=== PATIENT | male | born 1955 | race Caucasian/White ===

== ENCOUNTER 2019-05-30 18:35 | Emergency (ER) | payer MEDICAID ==
[~2019-05-30] VITALS: Ht 165.1 cm; Wt 77.0 kg
[2019-05-30] MEDS ORDERED: TETRACAINE 0.5% OPHTH DROPS 4ML RIGHTEYE ONE (21:00)
[2019-05-30 21:46] LABS: BASOPHILS % 0.5 % (0.0-2.0); EOSINOPHILS % 1.8 % (0.0-5.0); HEMATOCRIT. 36.1 % (42.0-52.0); HEMOGLOBIN. 12.5 g/dL (14.0-18.0); LYMPHOCYTES % 25.9 % (20.0-50.0); MEAN CORPUSCULAR HEMOGLOBIN 30.7 pg (28.0-32.0); MEAN CORPUSCULAR VOLUME 88.8 fL (80.0-94.0); MEAN PLATELET VOLUME 7.8 fl (7.4-10.4); MONOCYTES % 11.3 % (2.0-8.0); NEUTROPHILS % 60.5 % (40.0-76.0); PLATELET 92 x1000/uL (130-400); RED BLOOD CELL COUNT 4.07 mill/uL (4.7-6.1); RED CELL DISTRIBUTION WIDTH 13.3 % (11.6-14.6)
[2019-05-30 21:52] LABS: CHLORIDE 104 mEq/L (98-107)
[2019-05-31 00:58] VITALS: BP 141/77
== END 2019-05-31 01:03 | disposition home or self-care (01) ==
LOC: ER 18:37
DX: H53.8 Other visual disturbances (principal); R51 Headache; E11.9 Type 2 diabetes mellitus without complications; Z87.448 Personal history of other diseases of urinary system; Z87.19 Personal history of other diseases of the digestive system
CPT/HCPCS: 36415; 70450; 80053; 82962; 84484; 85025; 85651; 93005; 99284; Z7610

== ENCOUNTER 2022-05-25 08:36 | Inpatient (IN) | payer MEDICAID, OTHER ==
[~2022-05-25] VITALS: Ht 167.6 cm; Wt 73.5 kg
[2022-05-25] MEDS ORDERED: LIDOCAINE HCL 1% 20ML VIAL (Pyxis) INJ INFIL STA (09:13)
[2022-05-25 09:42] LABS: BASOPHILS % 0.4 % (0.0-2.0); EOSINOPHILS % 0.4 % (0.0-5.0); HEMOGLOBIN. 9.2 g/dL (14.0-18.0); LYMPHOCYTES % 18.4 % (20.0-50.0); MEAN CORPUSCULAR HEMOGLOBIN 29.9 pg (28.0-32.0); MEAN CORPUSCULAR VOLUME 90.7 fL (80.0-94.0); MEAN PLATELET VOLUME 8.5 fl (7.4-10.4); NEUTROPHILS % 70.8 % (40.0-76.0); RED BLOOD CELL COUNT 3.08 mill/uL (4.7-6.1)
[2022-05-25 09:53] LABS: CHLORIDE 104 mEq/L (98-107)
[2022-05-25 09:57] LABS: INR 1.2; PARTIAL THROMBOPLASTIN TIME 26.3 sec (23.4-31.0); PROTHROMBIN TIME 12.4 sec (9.6-11.0)
[2022-05-25 09:59] LABS: PLATELET 49 x1000/uL (130-400)
[2022-05-25] MEDS ORDERED: LACTULOSE ENEMA 1,000ML BOTTLE PR STA (10:07)
[2022-05-25 10:09] LABS: ETHANOL BLOOD < 10 mg/dL
[2022-05-25] MEDS ORDERED: CEFTRIAXONE 1 G PREMIX 50 ML IV ONE (10:15)
[2022-05-25] MEDS ORDERED: VANCOMYCIN 1G PREMIX 200 ML IV NR ×2 (15:30→22:00)
[2022-05-25] MEDS ORDERED: ONDANSETRON HCL 4MG/2ML INJ IV PRN (15:30)
[2022-05-25] MEDS ORDERED: IPRATROPIUM/ALBUTEROL 0.5-3(2.5)MG/3ML NEB HHN PRN (15:30)
[2022-05-25] MEDS ORDERED: PIPERACILLIN/TAZ 3.375G PREMIX 50 ML IV SCH (16:00)
[2022-05-25 16:30] VITALS: BP 105/64
[2022-05-25 16:36] LABS: BG BASE EXCESS -7.3 mmol/L (-2.0-2.0); BG CARBOXYHEMOGLOBIN 0.3 % (0.5-1.5); BG DEOXYHEMOGLOBIN 3.1 % (0.0-5.0); BG FRACTION INSPIRED OXYGEN 21; BG HCO3 ACT 15.3 mmol/L (22.0-26.0); BG METHEMOGLOBIN 0.3 % (0.0-1.5); BG OXYGEN SATURATION 96.9 % (92.0-98.5); BG OXYHEMOGLOBIN 96.3 % (94.0-97.0); BG PCO2 22.3 mmHg (35.0-45.0); BG PH 7.453 (7.350-7.450); BG PO2 87.6 mmHg (75.0-100.0); BG SAMPLE SITE RIGHT BRACHIAL; BG TOTAL HEMOGLOBIN 9.3 g/dL (12.0-18.0); BG VENT MODE ROOM AIR
[2022-05-25] MEDS ORDERED: LORAZEPAM 2MG/ML CPJ IV PRN (17:45)
[2022-05-25] MEDS ORDERED: REN800 MT (17:50)
[2022-05-25] MEDS ORDERED: CHLO10TA19 MT (17:50)
[2022-05-25] MEDS ORDERED: TEMA30CA MT (17:50)
[2022-05-25] MEDS ORDERED: TAMS-11 MT (17:50)
[2022-05-25] MEDS ORDERED: PROT40 MT (17:50)
[2022-05-25] MEDS ORDERED: FERR325T6 MT (17:50)
[2022-05-25] MEDS ORDERED: FOLI-43 MT (17:50)
[2022-05-25] MEDS ORDERED: LACT10SO3 MT (17:50)
[2022-05-25] MEDS ORDERED: THIA100T72 MT (17:50)
[2022-05-25 17:51] VITALS: BP 105/64
[2022-05-25] MEDS: PANTOPRAZOLE SODIUM 40 MG/VIAL IV SCH (18:07)
[2022-05-25] MEDS: LACTULOSE 20G/30ML UDC PO SCH ×2 (18:07→20:31)
[2022-05-25] MEDS: THIAMINE HCL 100MG TABLET PO SCH (18:08)
[2022-05-25 20:00] VITALS: BP 105/68
[2022-05-25] MEDS: ALBUMIN HUMAN 12.5GM/50ML (25%) IV SCH (20:22)
[2022-05-25] MEDS: RIFAXIMIN 550 MG TABLET PO SCH (20:22)
[2022-05-25] MEDS: CHLORDIAZEPOXIDE 5 MG CAPSULE PO SCH (21:26)
[2022-05-26] VITALS (9 sets, daily range): BP systolic 96–120; BP diastolic 55–80
[2022-05-26] MEDS: LACTULOSE 20G/30ML UDC PO SCH ×6 (01:18→20:43)
[2022-05-26 03:35] LABS: BASOPHILS % 0.1 % (0.0-2.0); EOSINOPHILS % 0.4 % (0.0-5.0); HEMATOCRIT. 26.1 % (42.0-52.0); HEMOGLOBIN. 8.8 g/dL (14.0-18.0); LYMPHOCYTES % 11.7 % (20.0-50.0); MEAN CORPUSCULAR HEMOGLOBIN 30.3 pg (28.0-32.0); MEAN CORPUSCULAR VOLUME 90.1 fL (80.0-94.0); MEAN PLATELET VOLUME 7.6 fl (7.4-10.4); MONOCYTES % 9.8 % (2.0-8.0); RED CELL DISTRIBUTION WIDTH 16.9 % (11.6-14.6)
[2022-05-26 03:43] LABS: INR 1.2; PROTHROMBIN TIME 12.8 sec (9.6-11.0)
[2022-05-26 04:52] LABS: FERRITIN 134 ng/mL (22-322)
[2022-05-26 05:17] LABS: VITAMIN B12 SERUM > 2000.0 pg/mL (211-911)
[2022-05-26 05:58] LABS: HEPATITIS B SURFACE ANTIGEN NEGATIVE
[2022-05-26] MEDS: CHLORDIAZEPOXIDE 5 MG CAPSULE PO SCH ×3 (06:13→21:04)
[2022-05-26 06:23] LABS: PLATELET 49 x1000/uL (130-400)
[2022-05-26] MEDS: RIFAXIMIN 550 MG TABLET PO SCH ×2 (08:32→20:43)
[2022-05-26] MEDS: THIAMINE HCL 100MG TABLET PO SCH (08:32)
[2022-05-26] MEDS: FOLIC ACID 1MG TABLET PO SCH (08:32)
[2022-05-26] MEDS: ALBUMIN HUMAN 12.5GM/50ML (25%) IV SCH ×2 (08:32→17:47)
[2022-05-26] MEDS: PANTOPRAZOLE SODIUM 40 MG/VIAL IV SCH (08:32)
[2022-05-26] MEDS: MULTIVITAMINS,THER W-MINERALS TABLET PO SCH (08:33)
[2022-05-26] MEDS: CEFTRIAXONE 1,000 MG in DEXTROSE 5% WATER 50 ML IV SCH (08:35)
[2022-05-26] MEDS ORDERED: PIPERACILLIN/TAZOBACTAM 3.375 G in DEXTROSE 5% WATER 50 ML IV SCH (09:00)
[2022-05-26] MEDS ORDERED: CEFTRIAXONE 1 G PREMIX 50 ML IV SCH (10:00)
[2022-05-26 16:56] LABS: CLARITY URINE CLOUDY (CLEAR); COLOR URINE YELLOW (YELLOW); KETONES URINE NEGATIVE (NEGATIVE); LEUKOCYTE ESTERASE URINE 2+ (NEGATIVE); NITRITE URINE NEGATIVE (NEGATIVE); OCCULT BLOOD URINE 3+ (NEGATIVE); PROTEIN URINE 2+ (NEGATIVE); SPECIFIC GRAVITY URINE 1.016 (1.005-1.030); UROBILINOGEN URINE 0.2 E.U./dL (0.2-1.0)
[2022-05-27] VITALS (11 sets, daily range): BP systolic 94–136; BP diastolic 54–68
[2022-05-27] MEDS: CHLORDIAZEPOXIDE 5 MG CAPSULE PO SCH ×3 (06:13→21:05)
[2022-05-27 08:17] LABS: BASOPHILS % 0.4 % (0.0-2.0); EOSINOPHILS % 0.6 % (0.0-5.0); HEMATOCRIT. 22.7 % (42.0-52.0); HEMOGLOBIN. 7.7 g/dL (14.0-18.0); LYMPHOCYTES % 16.3 % (20.0-50.0); MEAN CORPUSCULAR HEMOGLOBIN 30.5 pg (28.0-32.0); MEAN CORPUSCULAR VOLUME 90.3 fL (80.0-94.0); MEAN PLATELET VOLUME 7.6 fl (7.4-10.4); MONOCYTES % 10.9 % (2.0-8.0); NEUTROPHILS % 71.8 % (40.0-76.0); RED BLOOD CELL COUNT 2.51 mill/uL (4.7-6.1); RED CELL DISTRIBUTION WIDTH 16.8 % (11.6-14.6)
[2022-05-27 08:26] LABS: PLATELET 41 x1000/uL (130-400)
[2022-05-27] MEDS: CEFTRIAXONE 1,000 MG in DEXTROSE 5% WATER 50 ML IV SCH (08:30)
[2022-05-27] MEDS: THIAMINE HCL 100MG TABLET PO SCH (08:31)
[2022-05-27] MEDS: MULTIVITAMINS,THER W-MINERALS TABLET PO SCH (08:31)
[2022-05-27] MEDS: RIFAXIMIN 550 MG TABLET PO SCH ×2 (08:31→21:06)
[2022-05-27] MEDS: FOLIC ACID 1MG TABLET PO SCH (08:32)
[2022-05-27] MEDS: LACTULOSE 20G/30ML UDC PO SCH ×4 (08:32→21:05)
[2022-05-27] MEDS: PANTOPRAZOLE SODIUM 40 MG/VIAL IV SCH (08:38)
[2022-05-27] MEDS: ALBUMIN HUMAN 12.5GM/50ML (25%) IV SCH (12:08)
[2022-05-27] MEDS ORDERED: LIDOCAINE HCL 1% 30ML VIAL (10MG/ML) ONE (13:01)
[2022-05-27] MEDS ORDERED: SODIUM BICARBONATE 4% (2.4MEQ) 5ML VIAL IV ONE (13:02)
[2022-05-27] MEDS ORDERED: VANCOMYCIN 1G PREMIX 200 ML IV SCH (16:00)
[2022-05-28] VITALS: BP 96/49
[2022-05-28 00:34] LABS: HEMATOCRIT 30.7 % (42.0-52.0); HEMOGLOBIN 10.3 g/dL (14.0-18.0)
[2022-05-28 04:00] VITALS: BP 107/58
[2022-05-28] MEDS: CHLORDIAZEPOXIDE 5 MG CAPSULE PO SCH ×3 (05:45→22:11)
[2022-05-28 07:12] LABS: BASOPHILS % 0.6 % (0.0-2.0); EOSINOPHILS % 1.7 % (0.0-5.0); HEMATOCRIT. 29.4 % (42.0-52.0); HEMOGLOBIN. 9.7 g/dL (14.0-18.0); LYMPHOCYTES % 16.5 % (20.0-50.0); MEAN CORPUSCULAR VOLUME 91.2 fL (80.0-94.0); MEAN PLATELET VOLUME 7.6 fl (7.4-10.4); MONOCYTES % 12.2 % (2.0-8.0); RED BLOOD CELL COUNT 3.22 mill/uL (4.7-6.1); RED CELL DISTRIBUTION WIDTH 16.7 % (11.6-14.6)
[2022-05-28 08:00] VITALS: BP 130/77
[2022-05-28 08:29] LABS: PLATELET 49 x1000/uL (130-400)
[2022-05-28] MEDS: MULTIVITAMINS,THER W-MINERALS TABLET PO SCH (08:53)
[2022-05-28] MEDS: PANTOPRAZOLE SODIUM 40 MG/VIAL IV SCH (08:53)
[2022-05-28] MEDS: THIAMINE HCL 100MG TABLET PO SCH (08:53)
[2022-05-28] MEDS: FOLIC ACID 1MG TABLET PO SCH (08:53)
[2022-05-28] MEDS: RIFAXIMIN 550 MG TABLET PO SCH ×2 (08:53→21:18)
[2022-05-28] MEDS: CEFTRIAXONE 1,000 MG in DEXTROSE 5% WATER 50 ML IV SCH (08:58)
[2022-05-28] MEDS: LACTULOSE 20G/30ML UDC PO SCH ×4 (08:58→14:30)
[2022-05-28 12:00] VITALS: BP 155/88
[2022-05-28 16:00] VITALS: BP 124/82
[2022-05-28] MEDS: FERROUS SULFATE 325MG TABLET PO SCH (17:29)
[2022-05-28] MEDS: ASCORBIC ACID 500 MG TABLET PO SCH (17:29)
[2022-05-28] MEDS ORDERED: POTASSIUM CHLORIDE 20MEQ TABLET SR PO NR (19:45)
[2022-05-28 20:00] VITALS: BP 123/52
[2022-05-28] MEDS: CARVEDILOL 3.125 MG TABLET PO SCH (21:20)
[2022-05-29] VITALS: BP 107/42
[2022-05-29 04:00] VITALS: BP 115/45
[2022-05-29] MEDS: CHLORDIAZEPOXIDE 5 MG CAPSULE PO SCH ×3 (05:25→20:46)
[2022-05-29 08:00] VITALS: BP 138/79
[2022-05-29 08:29] LABS: BASOPHILS % 0.5 % (0.0-2.0); EOSINOPHILS % 3.6 % (0.0-5.0); HEMATOCRIT. 26.4 % (42.0-52.0); HEMOGLOBIN. 8.8 g/dL (14.0-18.0); LYMPHOCYTES % 23.1 % (20.0-50.0); MEAN CORPUSCULAR HEMOGLOBIN 30.2 pg (28.0-32.0); MEAN CORPUSCULAR VOLUME 90.1 fL (80.0-94.0); MEAN PLATELET VOLUME 7.9 fl (7.4-10.4); MONOCYTES % 13.2 % (2.0-8.0); NEUTROPHILS % 59.6 % (40.0-76.0); RED BLOOD CELL COUNT 2.92 mill/uL (4.7-6.1); RED CELL DISTRIBUTION WIDTH 15.8 % (11.6-14.6)
[2022-05-29] MEDS: CEFTRIAXONE 1,000 MG in DEXTROSE 5% WATER 50 ML IV SCH (09:16)
[2022-05-29] MEDS: LACTULOSE 20G/30ML UDC PO SCH (09:18)
[2022-05-29] MEDS: THIAMINE HCL 100MG TABLET PO SCH (09:18)
[2022-05-29] MEDS: ASCORBIC ACID 500 MG TABLET PO SCH ×2 (09:18→18:45)
[2022-05-29] MEDS: PANTOPRAZOLE SODIUM 40 MG/VIAL IV SCH (09:18)
[2022-05-29] MEDS: FERROUS SULFATE 325MG TABLET PO SCH ×2 (09:19→18:45)
[2022-05-29] MEDS: FOLIC ACID 1MG TABLET PO SCH (09:27)
[2022-05-29] MEDS: MULTIVITAMINS,THER W-MINERALS TABLET PO SCH (09:27)
[2022-05-29] MEDS: CARVEDILOL 3.125 MG TABLET PO SCH ×2 (09:27→20:46)
[2022-05-29] MEDS: RIFAXIMIN 550 MG TABLET PO SCH ×2 (09:27→20:46)
[2022-05-29 12:00] VITALS: BP 95/54
[2022-05-29 14:43] LABS: PLATELET 38 x1000/uL (130-400); PLATELET ESTIMATE MARKEDLY DECREASED
[2022-05-29 16:00] VITALS: BP 128/79
[2022-05-29 20:00] VITALS: BP 93/53
[2022-05-30 00:05] VITALS: BP 92/58
[2022-05-30 04:00] VITALS: BP 93/52
[2022-05-30] MEDS: CHLORDIAZEPOXIDE 5 MG CAPSULE PO SCH ×4 (05:37→21:25)
[2022-05-30 08:00] VITALS: BP 87/51
[2022-05-30] MEDS: CARVEDILOL 3.125 MG TABLET PO SCH ×2 (09:00→21:00)
[2022-05-30] MEDS: LACTULOSE 20G/30ML UDC PO SCH (09:13)
[2022-05-30] MEDS: FOLIC ACID 1MG TABLET PO SCH (09:14)
[2022-05-30] MEDS: THIAMINE HCL 100MG TABLET PO SCH (09:14)
[2022-05-30] MEDS: RIFAXIMIN 550 MG TABLET PO SCH ×2 (09:14→21:25)
[2022-05-30] MEDS: ASCORBIC ACID 500 MG TABLET PO SCH ×2 (09:14→17:26)
[2022-05-30] MEDS: MULTIVITAMINS,THER W-MINERALS TABLET PO SCH (09:14)
[2022-05-30] MEDS: FERROUS SULFATE 325MG TABLET PO SCH ×2 (09:14→17:26)
[2022-05-30] MEDS: PANTOPRAZOLE SODIUM 40 MG/VIAL IV SCH (09:14)
[2022-05-30] MEDS: CEFTRIAXONE 1,000 MG in DEXTROSE 5% WATER 50 ML IV SCH (09:16)
[2022-05-30 12:00] VITALS: BP 98/57
[2022-05-30 12:52] LABS: BASOPHILS % 0.6 % (0.0-2.0); EOSINOPHILS % 3.5 % (0.0-5.0); HEMATOCRIT. 26.1 % (42.0-52.0); LYMPHOCYTES % 27.1 % (20.0-50.0); MEAN CORPUSCULAR HEMOGLOBIN 30.4 pg (28.0-32.0); MEAN CORPUSCULAR VOLUME 88.4 fL (80.0-94.0); MEAN PLATELET VOLUME 7.5 fl (7.4-10.4); MONOCYTES % 13.7 % (2.0-8.0); NEUTROPHILS % 55.1 % (40.0-76.0); RED BLOOD CELL COUNT 2.95 mill/uL (4.7-6.1); RED CELL DISTRIBUTION WIDTH 16.3 % (11.6-14.6)
[2022-05-30] MEDS ORDERED: RIFA550T MT (13:57)
[2022-05-30 16:00] VITALS: BP 84/55
[2022-05-30] MEDS: MIDODRINE HCL 5MG TABLET PO SCH (17:27)
[2022-05-30] MEDS ORDERED: ALBUMIN HUMAN 12.5GM/50ML (25%) IV NR (18:00)
[2022-05-30 20:00] VITALS: BP 100/54
[2022-05-31] VITALS: BP 90/53
[2022-05-31 04:00] VITALS: BP 94/50
[2022-05-31 07:47] LABS: BASOPHILS % 0.7 % (0.0-2.0); EOSINOPHILS % 2.9 % (0.0-5.0); HEMATOCRIT. 24.4 % (42.0-52.0); HEMOGLOBIN. 8.3 g/dL (14.0-18.0); LYMPHOCYTES % 35.3 % (20.0-50.0); MEAN CORPUSCULAR HEMOGLOBIN 30.3 pg (28.0-32.0); MEAN CORPUSCULAR VOLUME 89.4 fL (80.0-94.0); MEAN PLATELET VOLUME 7.5 fl (7.4-10.4); MONOCYTES % 12.7 % (2.0-8.0); NEUTROPHILS % 48.4 % (40.0-76.0); RED BLOOD CELL COUNT 2.73 mill/uL (4.7-6.1)
[2022-05-31 08:00] VITALS: BP 91/55
[2022-05-31 08:21] LABS: PLATELET 32 x1000/uL (130-400)
[2022-05-31] MEDS ORDERED: POTASSIUM CHLORIDE 20MEQ TABLET SR PO NR (08:30)
[2022-05-31] MEDS: CARVEDILOL 3.125 MG TABLET PO SCH (09:00)
[2022-05-31 09:26] LABS: PLATELET 33 x1000/uL (130-400)
[2022-05-31] MEDS: FOLIC ACID 1MG TABLET PO SCH (09:30)
[2022-05-31] MEDS: THIAMINE HCL 100MG TABLET PO SCH (09:30)
[2022-05-31] MEDS: ASCORBIC ACID 500 MG TABLET PO SCH ×2 (09:30→16:59)
[2022-05-31] MEDS: FERROUS SULFATE 325MG TABLET PO SCH ×2 (09:30→16:59)
[2022-05-31] MEDS: LACTULOSE 20G/30ML UDC PO SCH (09:31)
[2022-05-31] MEDS: RIFAXIMIN 550 MG TABLET PO SCH (09:31)
[2022-05-31] MEDS: MULTIVITAMINS,THER W-MINERALS TABLET PO SCH (09:31)
[2022-05-31] MEDS: PANTOPRAZOLE SODIUM 40 MG/VIAL IV SCH (09:31)
[2022-05-31] MEDS: MIDODRINE HCL 5MG TABLET PO SCH ×3 (09:31→16:59)
[2022-05-31 12:00] VITALS: BP 91/55
[2022-05-31 16:00] VITALS: BP 97/49
[2022-05-31 20:00] VITALS: BP 105/56
[2022-06-01] VITALS: BP 118/55
[2022-06-01 00:14] VITALS: BP 118/55
[2022-06-01 04:00] VITALS: BP 113/53
[2022-06-01 07:04] LABS: BASOPHILS % 0.5 % (0.0-2.0); EOSINOPHILS % 2.7 % (0.0-5.0); HEMOGLOBIN. 8.7 g/dL (14.0-18.0); LYMPHOCYTES % 27.9 % (20.0-50.0); MEAN CORPUSCULAR HEMOGLOBIN 29.8 pg (28.0-32.0); MEAN CORPUSCULAR VOLUME 89.1 fL (80.0-94.0); MEAN PLATELET VOLUME 7.8 fl (7.4-10.4); MONOCYTES % 12.6 % (2.0-8.0); NEUTROPHILS % 56.3 % (40.0-76.0); RED BLOOD CELL COUNT 2.92 mill/uL (4.7-6.1)
[2022-06-01 07:35] LABS: PLATELET 38 x1000/uL (130-400)
[2022-06-01 08:00] VITALS: BP 154/45
[2022-06-01] MEDS: ASCORBIC ACID 500 MG TABLET PO SCH (08:41)
[2022-06-01] MEDS: FERROUS SULFATE 325MG TABLET PO SCH (08:41)
[2022-06-01] MEDS: MULTIVITAMINS,THER W-MINERALS TABLET PO SCH (08:41)
[2022-06-01] MEDS: MIDODRINE HCL 5MG TABLET PO SCH ×2 (08:42→13:00)
[2022-06-01] MEDS: FOLIC ACID 1MG TABLET PO SCH (08:42)
[2022-06-01] MEDS: LACTULOSE 20G/30ML UDC PO SCH (08:42)
[2022-06-01] MEDS: THIAMINE HCL 100MG TABLET PO SCH (08:42)
[2022-06-01] MEDS: PANTOPRAZOLE SODIUM 40 MG/VIAL IV SCH (09:55)
[2022-06-01 12:00] VITALS: BP 133/63
[2022-06-01] MEDS ORDERED: POTASSIUM CHLORIDE 20MEQ TABLET SR PO NR (15:00)
[2022-06-01] MEDS ORDERED: FUROSEMIDE 20MG TABLET PO SCH (15:00)
[2022-06-01 16:11] VITALS: BP 131/65
== END 2022-06-01 17:46 | disposition home or self-care (01) | DRG 432 ==
LOC: ER 08:36 → 7WST 12:34 → ENRESERV 14:49
PROVIDERS: ADMIT Internal Medicine; ATTEND Internal Medicine
PROC: 30233R1 Transfusion of Nonautologous Platelets into Peripheral Vein, Percutaneous Approach (ICD-10-PCS; 2022-05-26)
PROC: 0W9G30Z Drainage of Peritoneal Cavity with Drainage Device, Percutaneous Approach (ICD-10-PCS; principal; 2022-05-27)
PROC: 30233N1 Transfusion of Nonautologous Red Blood Cells into Peripheral Vein, Percutaneous Approach (ICD-10-PCS; 2022-05-27)
DX: K74.60 Unspecified cirrhosis of liver (principal); E43 Unspecified severe protein-calorie malnutrition; G92.8 Other toxic encephalopathy; R18.8 Other ascites; E87.20 Acidosis, unspecified; D68.9 Coagulation defect, unspecified; E87.1 Hypo-osmolality and hyponatremia; K76.6 Portal hypertension; N17.9 Acute kidney failure, unspecified; E72.4 Disorders of ornithine metabolism; K76.82 Hepatic encephalopathy; N18.9 Chronic kidney disease, unspecified; E11.22 Type 2 diabetes mellitus with diabetic chronic kidney disease; D69.6 Thrombocytopenia, unspecified; D63.1 Anemia in chronic kidney disease; E88.09 Other disorders of plasma-protein metabolism, not elsewhere classified; R74.01 Elevation of levels of liver transaminase levels; B19.20 Unspecified viral hepatitis C without hepatic coma; N40.1 Benign prostatic hyperplasia with lower urinary tract symptoms; R32 Unspecified urinary incontinence; Z68.26 Body mass index [BMI] 26.0-26.9, adult
CPT/HCPCS: 36415; 36600; 49083; 71045; 74176; 74230; 76705; 80048; 80053; 80076; 80202; 80307; 80320; 80329; 81003; 82040; 82140; 82248; 82375; 82607; 82728; 82805; 82962; 83540; 83550; 83605; 83615; 83735; 83880; 84145; 84300; 84443; 85014; 85018; 85025; 85044; 86705; 86709; 86803; 86850; 86900; 86920; 87075; 87340; 87426; 92610; 92611; 93005; 97162; 97535; 99291; A6261; C9113; J0696; J2060; J2405; J3370; J3490; J7060; P9016; P9034; P9047; A4315; G0480

== ENCOUNTER 2022-06-10 01:22 | Inpatient (IN) | payer MEDICARE, MEDICAID ==
[2022-06-10] VITALS (61 sets, daily range): BP systolic 76–134; BP diastolic 50–76
[~2022-06-10] VITALS: Ht 165.1 cm; Wt 78.2 kg
[~2022-06-10 01:22] MED LIST: CHLO10TA19 MT; FERR325T6 MT; FOLI-43 MT; LACT10SO3 MT; PROT40 MT; REN800 MT; RIFA550T MT; TAMS-11 MT; TEMA30CA MT; THIA100T72 MT
[2022-06-10] MEDS ORDERED: SODIUM CHLORIDE 0.9% 1000ML BAG (SEPSIS BOLUS) IV ONE (01:45)
[2022-06-10] MEDS ORDERED: NALOXONE HCL 1 MG/ML 2ML VIAL IV ONE (01:45)
[2022-06-10 02:21] LABS: BASOPHILS % 0.2 % (0.0-2.0); EOSINOPHILS % 0.5 % (0.0-5.0); HEMATOCRIT. 26.3 % (42.0-52.0); HEMOGLOBIN. 8.9 g/dL (14.0-18.0); MEAN PLATELET VOLUME 7.5 fl (7.4-10.4); NEUTROPHILS % 80.3 % (40.0-76.0); PLATELET 55 x1000/uL (130-400); RED BLOOD CELL COUNT 2.96 mill/uL (4.7-6.1); RED CELL DISTRIBUTION WIDTH 16.9 % (11.6-14.6)
[2022-06-10 02:33] LABS: INR 1.2
[2022-06-10 02:41] LABS: CHLORIDE 95 mEq/L (98-107)
[2022-06-10 02:51] LABS: ETHANOL BLOOD < 10 mg/dL
[2022-06-10 03:08] LABS: CLARITY URINE CLEAR (CLEAR); COLOR URINE YELLOW (YELLOW); KETONES URINE TRACE (NEGATIVE); LEUKOCYTE ESTERASE URINE 1+ (NEGATIVE); NITRITE URINE NEGATIVE (NEGATIVE); OCCULT BLOOD URINE 3+ (NEGATIVE); PH URINE 5.5 (4.5-8.0); PROTEIN URINE 1+ (NEGATIVE); SPECIFIC GRAVITY URINE 1.014 (1.005-1.030); UROBILINOGEN URINE 0.2 E.U./dL (0.2-1.0)
[2022-06-10] MEDS ORDERED: ROCURONIUM BROMIDE 10MG/ML VIAL 5ML IV ONE (03:15)
[2022-06-10] MEDS ORDERED: ETOMIDATE 2MG/ML 10ML VIAL IV ONE (03:15)
[2022-06-10] MEDS ORDERED: LACTULOSE 20G/30ML UDC PO ONE (03:15)
[2022-06-10 03:29] LABS: *AMPHETAMINES SCREEN URINE NEGATIVE (NEGATIVE); *BARBITURATES SCREEN URINE NEGATIVE (NEGATIVE); *BENZODIAZEPINES SCREEN URINE PRESUMTIVE POSITIVE (NEGATIVE); *COCAINE SCREEN URINE NEGATIVE (NEGATIVE); CANNABINOID URINE SCREEN NEGATIVE (NEGATIVE); METHADONE URINE SCREEN NEGATIVE (NEGATIVE); OPIATES URINE SCREEN NEGATIVE (NEGATIVE); PHENCYCLIDINE URINE SCREEN NEGATIVE (NEGATIVE)
[2022-06-10] MEDS ORDERED: INSULIN REGULAR (HUMULIN R) 300UNITS/3ML VIAL IV ONE (03:30)
[2022-06-10] MEDS ORDERED: CALCIUM GLUCONATE 100MG/ML 10ML VIAL IV ONE (03:30)
[2022-06-10] MEDS ORDERED: DEXTROSE 50% WATER 50ML SYRINGE IV ONE (03:30)
[2022-06-10] MEDS ORDERED: SUCCINYLCHOLINE CHLORIDE 200MG/10ML IV ONE (04:30)
[2022-06-10] MEDS ORDERED: FENTANYL 2500MCG/250ML PMX 250 ML IV ONE (04:30)
[2022-06-10] MEDS ORDERED: MIDAZOLAM HCL 100 MG in SODIUM CHLORIDE 0.9% 100 ML IV PRN (04:30)
[2022-06-10 04:39] LABS: BG CARBOXYHEMOGLOBIN 0.2 % (0.5-1.5); BG DEOXYHEMOGLOBIN 1.2 % (0.0-5.0); BG FRACTION INSPIRED OXYGEN 35; BG HCO3 ACT 16.9 mmol/L (22.0-26.0); BG METHEMOGLOBIN 0.4 % (0.0-1.5); BG OXYGEN SATURATION 98.8 % (92.0-98.5); BG OXYHEMOGLOBIN 98.2 % (94.0-97.0); BG PCO2 24.8 mmHg (35.0-45.0); BG PH 7.452 (7.350-7.450); BG PO2 141.8 mmHg (75.0-100.0); BG SAMPLE SITE LEFT RADIAL; BG TOTAL HEMOGLOBIN 8.7 g/dL (12.0-18.0); BG VENT MODE VENT - AC
[2022-06-10] MEDS ORDERED: IOHEXOL-350 100 ML BOTTLE ONE (04:40)
[2022-06-10] MEDS ORDERED: DEXTROSE 50% WATER 50ML SYRINGE IV NR (05:30)
[2022-06-10] MEDS ORDERED: LACTULOSE 20G/30ML UDC PO NR (05:30)
[2022-06-10] MEDS ORDERED: INSULIN REGULAR (HUMULIN R) 300UNITS/3ML VIAL IV NR (05:30)
[2022-06-10] MEDS ORDERED: CEFTRIAXONE 1 G PREMIX 50 ML IV ONE (06:15)
[2022-06-10 06:27] LABS: HEPATITIS B SURFACE ANTIGEN NEGATIVE
[2022-06-10] MEDS ORDERED: NOREPINEPHRINE 8MG/250ML PMX 250 ML IV ONE (06:45)
[2022-06-10] MEDS ORDERED: NOREPINEPHRINE 8 MG in DEXTROSE 5% WATER 250 ML IV ONE (07:00)
[2022-06-10] MEDS ORDERED: COM10 MT (11:35)
[2022-06-10] MEDS ORDERED: RIFA550T MT (11:35)
[2022-06-10] MEDS ORDERED: THIA50TA12 MT (11:35)
[2022-06-10] MEDS ORDERED: TEMA15CA MT (11:35)
[2022-06-10] MEDS ORDERED: FURO-152 MT (11:35)
[2022-06-10] MEDS ORDERED: DEXT 5%/0.9% NACL 1,000 ML IV SCH (12:00)
[2022-06-10] MEDS ORDERED: PANTOPRAZOLE 80 MG in SODIUM CHLORIDE 0.9% 100 ML IV SCH (13:00)
[2022-06-10] MEDS ORDERED: VANCOMYCIN 500MG PREMIX 100 ML IV NR (13:00)
[2022-06-10] MEDS: LACTULOSE 20G/30ML UDC NG SCH ×3 (13:58→20:14)
[2022-06-10] MEDS: OCTREOTIDE 1,000 MCG in SODIUM CHLORIDE 0.9% 98 ML IV SCH (13:59)
[2022-06-10] MEDS ORDERED: PIPERACILLIN/TAZOBACTAM 3.375 G in DEXTROSE 5% WATER 50 ML IV SCH (14:00)
[2022-06-10] MEDS ORDERED: DEXTROSE 50% WATER 50ML SYRINGE IV PRN (15:15)
[2022-06-10 16:12] LABS: HEMATOCRIT 27.8 % (42.0-52.0)
[2022-06-10 16:49] LABS: BG BASE EXCESS 1.5 mmol/L (-2.0-2.0); BG CARBOXYHEMOGLOBIN 0.3 % (0.5-1.5); BG DEOXYHEMOGLOBIN 1.5 % (0.0-5.0); BG HCO3 ACT 20.9 mmol/L (22.0-26.0); BG METHEMOGLOBIN 0.1 % (0.0-1.5); BG OXYGEN SATURATION 98.5 % (92.0-98.5); BG OXYHEMOGLOBIN 98.1 % (94.0-97.0); BG PCO2 19.1 mmHg (35.0-45.0); BG PH 7.656 (7.350-7.450); BG PO2 130.8 mmHg (75.0-100.0); BG SAMPLE SITE RIGHT BRACHIAL; BG TOTAL HEMOGLOBIN 10.2 g/dL (12.0-18.0); BG VENT MODE VENT - AC
[2022-06-10] MEDS ORDERED: PROPOFOL 10MG/ML 100ML 100 ML IV PRN (17:15)
[2022-06-10] MEDS: BLOOD SUGAR DIAGNOSTIC STRIP TEST SCH ×2 (17:21→23:48)
[2022-06-10] MEDS: INSULIN LISPRO 100 UNITS/ML SUBCUT SCH ×2 (17:22→23:48)
[2022-06-10] MEDS ORDERED: MEROPENEM 1,000 MG in SODIUM CHLORIDE 0.9% 100 ML IV SCH (17:45)
[2022-06-10] MEDS: PANTOPRAZOLE SODIUM 40 MG/VIAL IV SCH (18:03)
[2022-06-10] MEDS: MEROPENEM 500MG in NORMAL SALINE 50ML IV SCH (20:13)
[2022-06-10] MEDS: RIFAXIMIN 550 MG TABLET PO SCH (20:14)
[2022-06-10] MEDS: NOREPINEPHRINE 32 MG in DEXT 5% WATER 218 ML IV PRN (20:15)
[2022-06-10 20:51] LABS: HEMATOCRIT 26.8 % (42.0-52.0); HEMOGLOBIN 9.1 g/dL (14.0-18.0)
[2022-06-10] MEDS ORDERED: LACTULOSE 20G/30ML UDC PO PRN (21:00)
[2022-06-10] MEDS: LACTULOSE 20G/30ML UDC PO SCH (23:48)
[2022-06-11] VITALS (89 sets, daily range): BP systolic 72–124; BP diastolic 50–78
[2022-06-11 01:28] LABS: HEMATOCRIT 25.3 % (42.0-52.0); HEMOGLOBIN 8.5 g/dL (14.0-18.0)
[2022-06-11] MEDS: DEXT 10% WATER 1,000 ML IV SCH ×2 (02:31→15:49)
[2022-06-11] MEDS: LACTULOSE 20G/30ML UDC PO SCH ×4 (05:48→23:37)
[2022-06-11] MEDS: BLOOD SUGAR DIAGNOSTIC STRIP TEST SCH ×4 (05:48→23:38)
[2022-06-11] MEDS: INSULIN LISPRO 100 UNITS/ML SUBCUT SCH ×4 (05:49→23:38)
[2022-06-11 06:23] LABS: HEMATOCRIT 25.8 % (42.0-52.0); HEMOGLOBIN 8.9 g/dL (14.0-18.0); MEAN CORPUSCULAR HEMOGLOBIN 30.3 pg (28.0-32.0); MEAN CORPUSCULAR VOLUME 88.3 fL (80.0-94.0); PLATELET 73 x1000/uL (130-400); RED BLOOD CELL COUNT 2.93 mill/uL (4.7-6.1); RED CELL DISTRIBUTION WIDTH 16.9 % (11.6-14.6)
[2022-06-11] MEDS: PANTOPRAZOLE SODIUM 40 MG/VIAL IV SCH (08:51)
[2022-06-11] MEDS: RIFAXIMIN 550 MG TABLET PO SCH ×2 (08:51→20:29)
[2022-06-11 09:39] LABS: BG BASE EXCESS -5.1 mmol/L (-2.0-2.0); BG CARBOXYHEMOGLOBIN 0.3 % (0.5-1.5); BG DEOXYHEMOGLOBIN 1.2 % (0.0-5.0); BG FRACTION INSPIRED OXYGEN 30; BG HCO3 ACT 16.1 mmol/L (22.0-26.0); BG METHEMOGLOBIN 0.3 % (0.0-1.5); BG OXYGEN SATURATION 98.8 % (92.0-98.5); BG OXYHEMOGLOBIN 98.2 % (94.0-97.0); BG PCO2 20.5 mmHg (35.0-45.0); BG PH 7.513 (7.350-7.450); BG PO2 147.8 mmHg (75.0-100.0); BG SAMPLE SITE RIGHT BRACHIAL; BG TOTAL HEMOGLOBIN 10.9 g/dL (12.0-18.0); BG VENT MODE VENT - AC
[2022-06-11] MEDS: OCTREOTIDE 1,000 MCG in SODIUM CHLORIDE 0.9% 98 ML IV SCH (10:30)
[2022-06-11 12:04] LABS: HEMATOCRIT 27.2 % (42.0-52.0); HEMOGLOBIN 9.2 g/dL (14.0-18.0)
[2022-06-11] MEDS ORDERED: VANCOMYCIN 500MG PREMIX 100 ML IV SCH (13:00)
[2022-06-11] MEDS ORDERED: PROPOFOL 10MG/ML 100ML 100 ML IV PRN (18:15)
[2022-06-11] MEDS: MEROPENEM 500MG in NORMAL SALINE 50ML IV SCH (20:29)
[2022-06-11 21:34] LABS: HEMATOCRIT 24.8 % (42.0-52.0); HEMOGLOBIN 8.3 g/dL (14.0-18.0)
[2022-06-12] VITALS (47 sets, daily range): BP systolic 91–134; BP diastolic 52–84
[2022-06-12 01:11] LABS: HEMATOCRIT 24.3 % (42.0-52.0); HEMOGLOBIN 8.1 g/dL (14.0-18.0)
[2022-06-12 06:09] LABS: BASOPHILS % 0.5 % (0.0-2.0); EOSINOPHILS % 0.7 % (0.0-5.0); HEMATOCRIT. 25.2 % (42.0-52.0); HEMOGLOBIN. 8.4 g/dL (14.0-18.0); LYMPHOCYTES % 18.2 % (20.0-50.0); MEAN CORPUSCULAR HEMOGLOBIN 30.2 pg (28.0-32.0); MEAN CORPUSCULAR VOLUME 90.3 fL (80.0-94.0); MEAN PLATELET VOLUME 8.1 fl (7.4-10.4); MONOCYTES % 13.3 % (2.0-8.0); NEUTROPHILS % 67.3 % (40.0-76.0); RED BLOOD CELL COUNT 2.79 mill/uL (4.7-6.1); RED CELL DISTRIBUTION WIDTH 17.2 % (11.6-14.6)
[2022-06-12] MEDS: LACTULOSE 20G/30ML UDC PO SCH ×4 (06:18→23:42)
[2022-06-12] MEDS: BLOOD SUGAR DIAGNOSTIC STRIP TEST SCH ×4 (06:18→23:41)
[2022-06-12] MEDS: DEXT 10% WATER 1,000 ML IV SCH ×2 (06:19→20:28)
[2022-06-12] MEDS: OCTREOTIDE 1,000 MCG in SODIUM CHLORIDE 0.9% 98 ML IV SCH (06:19)
[2022-06-12] MEDS: INSULIN LISPRO 100 UNITS/ML SUBCUT SCH ×4 (06:20→23:41)
[2022-06-12 06:43] LABS: PLATELET 47 x1000/uL (130-400)
[2022-06-12] MEDS: RIFAXIMIN 550 MG TABLET PO SCH ×2 (09:18→20:28)
[2022-06-12] MEDS: PANTOPRAZOLE SODIUM 40 MG/VIAL IV SCH ×2 (09:18→20:28)
[2022-06-12 12:31] LABS: HEMATOCRIT 24.7 % (42.0-52.0); HEMOGLOBIN 8.2 g/dL (14.0-18.0)
[2022-06-12] MEDS: PROPOFOL 10MG/ML 100ML 100 ML IV PRN (20:06)
[2022-06-12] MEDS: MEROPENEM 500MG in NORMAL SALINE 50ML IV SCH (20:28)
[2022-06-13] VITALS (108 sets, daily range): BP systolic 77–148; BP diastolic 51–94
[2022-06-13] MEDS: OCTREOTIDE 1,000 MCG in SODIUM CHLORIDE 0.9% 98 ML IV SCH ×2 (01:48→20:52)
[2022-06-13] MEDS: BLOOD SUGAR DIAGNOSTIC STRIP TEST SCH ×4 (05:28→23:55)
[2022-06-13] MEDS: INSULIN LISPRO 100 UNITS/ML SUBCUT SCH ×4 (05:28→23:55)
[2022-06-13] MEDS: LACTULOSE 20G/30ML UDC PO SCH ×3 (05:28→18:49)
[2022-06-13] MEDS: NOREPINEPHRINE 32 MG in DEXT 5% WATER 218 ML IV PRN (08:35)
[2022-06-13] MEDS: PROPOFOL 10MG/ML 100ML 100 ML IV PRN (09:32)
[2022-06-13 10:03] LABS: BASOPHILS % 0.4 % (0.0-2.0); EOSINOPHILS % 2.3 % (0.0-5.0); HEMATOCRIT. 30.3 % (42.0-52.0); HEMOGLOBIN. 10.4 g/dL (14.0-18.0); LYMPHOCYTES % 27.3 % (20.0-50.0); MEAN CORPUSCULAR HEMOGLOBIN 30.4 pg (28.0-32.0); MEAN CORPUSCULAR VOLUME 88.9 fL (80.0-94.0); MEAN PLATELET VOLUME 7.7 fl (7.4-10.4); MONOCYTES % 11.3 % (2.0-8.0); NEUTROPHILS % 58.7 % (40.0-76.0); PLATELET 56 x1000/uL (130-400); RED BLOOD CELL COUNT 3.41 mill/uL (4.7-6.1); RED CELL DISTRIBUTION WIDTH 16.3 % (11.6-14.6)
[2022-06-13] MEDS ORDERED: ALBUMIN HUMAN 25GM/100ML (25%) IV SCH (11:00)
[2022-06-13] MEDS: PANTOPRAZOLE SODIUM 40 MG/VIAL IV SCH ×2 (11:13→20:52)
[2022-06-13] MEDS: RIFAXIMIN 550 MG TABLET PO SCH ×2 (11:13→20:52)
[2022-06-13 12:28] LABS: BASOPHILS % 0.6 % (0.0-2.0); EOSINOPHILS % 1.3 % (0.0-5.0); HEMOGLOBIN. 10.8 g/dL (14.0-18.0); LYMPHOCYTES % 14.2 % (20.0-50.0); MEAN CORPUSCULAR HEMOGLOBIN 30.2 pg (28.0-32.0); MEAN CORPUSCULAR VOLUME 89.2 fL (80.0-94.0); MEAN PLATELET VOLUME 7.7 fl (7.4-10.4); MONOCYTES % 9.8 % (2.0-8.0); NEUTROPHILS % 74.1 % (40.0-76.0); PLATELET 60 x1000/uL (130-400); RED BLOOD CELL COUNT 3.59 mill/uL (4.7-6.1); RED CELL DISTRIBUTION WIDTH 16.5 % (11.6-14.6)
[2022-06-13] MEDS ORDERED: POTASSIUM CHLORIDE 20MEQ TABLET SR PO NR (12:45)
[2022-06-13 13:21] LABS: INR 1.3; PROTHROMBIN TIME 13.5 sec (9.6-11.0)
[2022-06-13] MEDS: DEXT 5%/0.45% NACL 1000ML 1,000 ML IV SCH (13:33)
[2022-06-13] MEDS ORDERED: VANCOMYCIN 500MG PREMIX 100 ML IV SCH (15:30)
[2022-06-13 15:39] LABS: BG BASE EXCESS -1.9 mmol/L (-2.0-2.0); BG CARBOXYHEMOGLOBIN 0.2 % (0.5-1.5); BG FRACTION INSPIRED OXYGEN 30; BG HCO3 ACT 21.5 mmol/L (22.0-26.0); BG METHEMOGLOBIN 0.2 % (0.0-1.5); BG OXYHEMOGLOBIN 98.6 % (94.0-97.0); BG PCO2 31.4 mmHg (35.0-45.0); BG PEEP (cmH2O) 0 cmH2O; BG PH 7.453 (7.350-7.450); BG PO2 150.5 mmHg (75.0-100.0); BG SAMPLE SITE RIGHT BRACHIAL; BG TOTAL HEMOGLOBIN 9.7 g/dL (12.0-18.0); BG VENT MODE VENT - CPAP
[2022-06-13] MEDS ORDERED: PROPOFOL 10MG/ML 100ML 100 ML IV PRN (20:45)
[2022-06-13] MEDS: MEROPENEM 500MG in NORMAL SALINE 50ML IV SCH (20:51)
[2022-06-14] VITALS (95 sets, daily range): BP systolic 74–123; BP diastolic 24–79
[2022-06-14] MEDS: LACTULOSE 20G/30ML UDC PO SCH ×2 (00:12→05:38)
[2022-06-14] MEDS: BLOOD SUGAR DIAGNOSTIC STRIP TEST SCH ×4 (05:31→23:58)
[2022-06-14 05:34] LABS: BASOPHILS % 1.1 % (0.0-2.0); EOSINOPHILS % 3.2 % (0.0-5.0); HEMOGLOBIN. 9.6 g/dL (14.0-18.0); LYMPHOCYTES % 29.3 % (20.0-50.0); MEAN CORPUSCULAR HEMOGLOBIN 30.2 pg (28.0-32.0); MEAN CORPUSCULAR VOLUME 87.9 fL (80.0-94.0); MEAN PLATELET VOLUME 7.7 fl (7.4-10.4); MONOCYTES % 10.9 % (2.0-8.0); NEUTROPHILS % 55.5 % (40.0-76.0); PLATELET 64 x1000/uL (130-400); RED BLOOD CELL COUNT 3.18 mill/uL (4.7-6.1); RED CELL DISTRIBUTION WIDTH 16.3 % (11.6-14.6)
[2022-06-14] MEDS: INSULIN LISPRO 100 UNITS/ML SUBCUT SCH ×4 (05:39→23:58)
[2022-06-14] MEDS: RIFAXIMIN 550 MG TABLET PO SCH ×2 (08:46→20:40)
[2022-06-14] MEDS: PANTOPRAZOLE SODIUM 40 MG/VIAL IV SCH ×2 (08:46→20:40)
[2022-06-14] MEDS: DEXT 5%/0.45% NACL 1000ML 1,000 ML IV SCH (08:46)
[2022-06-14] MEDS ORDERED: KCL 20MEQ/100ML PREMIX 100 ML IV SCH (10:00)
[2022-06-14 10:53] LABS: BG BASE EXCESS -3.5 mmol/L (-2.0-2.0); BG DEOXYHEMOGLOBIN 2.3 % (0.0-5.0); BG FRACTION INSPIRED OXYGEN 30; BG HCO3 ACT 20.6 mmol/L (22.0-26.0); BG METHEMOGLOBIN 0.3 % (0.0-1.5); BG OXYGEN SATURATION 97.7 % (92.0-98.5); BG OXYHEMOGLOBIN 97.4 % (94.0-97.0); BG PCO2 33.4 mmHg (35.0-45.0); BG PH 7.407 (7.350-7.450); BG PO2 103.1 mmHg (75.0-100.0); BG SAMPLE SITE RIGHT BRACHIAL; BG VENT MODE VENT - AC
[2022-06-14] MEDS: MIDODRINE HCL 5MG TABLET PO SCH ×3 (12:30→17:50)
[2022-06-14] MEDS: METRONIDAZOLE 250MG TABLET PO SCH ×2 (14:32→20:40)
[2022-06-14] MEDS: AMPICILLIN 1,000 MG in SODIUM CHLORIDE 0.9% 50 ML IV SCH (15:46)
[2022-06-14] MEDS: CEFTAZIDIME PENTAHYDRATE 1 G in DEXTROSE 5% WATER 50 ML IV SCH (15:47)
[2022-06-14] MEDS: OCTREOTIDE 1,000 MCG in SODIUM CHLORIDE 0.9% 98 ML IV SCH (17:50)
[2022-06-15] VITALS (103 sets, daily range): BP systolic 60–127; BP diastolic 39–94
[2022-06-15] MEDS: BLOOD SUGAR DIAGNOSTIC STRIP TEST SCH ×3 (05:12→17:26)
[2022-06-15] MEDS: DEXT 5%/0.45% NACL 1000ML 1,000 ML IV SCH (05:29)
[2022-06-15] MEDS: METRONIDAZOLE 250MG TABLET PO SCH ×3 (05:29→21:14)
[2022-06-15] MEDS: INSULIN LISPRO 100 UNITS/ML SUBCUT SCH ×3 (05:37→18:00)
[2022-06-15 06:19] LABS: EOSINOPHILS % 2.3 % (0.0-5.0); HEMATOCRIT. 28.8 % (42.0-52.0); HEMOGLOBIN. 9.8 g/dL (14.0-18.0); LYMPHOCYTES % 24.1 % (20.0-50.0); MEAN CORPUSCULAR HEMOGLOBIN 30.4 pg (28.0-32.0); MEAN CORPUSCULAR VOLUME 89.4 fL (80.0-94.0); MEAN PLATELET VOLUME 7.7 fl (7.4-10.4); MONOCYTES % 11.4 % (2.0-8.0); NEUTROPHILS % 61.2 % (40.0-76.0); RED BLOOD CELL COUNT 3.22 mill/uL (4.7-6.1); RED CELL DISTRIBUTION WIDTH 15.8 % (11.6-14.6)
[2022-06-15 06:51] LABS: PLATELET 48 x1000/uL (130-400)
[2022-06-15] MEDS: RIFAXIMIN 550 MG TABLET PO SCH ×2 (09:02→21:14)
[2022-06-15] MEDS: AMPICILLIN 1,000 MG in SODIUM CHLORIDE 0.9% 50 ML IV SCH ×2 (09:02→21:14)
[2022-06-15] MEDS: LACTULOSE 20G/30ML UDC PO SCH (09:02)
[2022-06-15] MEDS: PANTOPRAZOLE SODIUM 40 MG/VIAL IV SCH ×2 (09:02→21:14)
[2022-06-15] MEDS: MIDODRINE HCL 5MG TABLET PO SCH ×3 (09:02→16:21)
[2022-06-15 13:37] LABS: HEPATITIS B SURFACE ANTIGEN NEGATIVE
[2022-06-15] MEDS: OCTREOTIDE 1,000 MCG in SODIUM CHLORIDE 0.9% 98 ML IV SCH (14:23)
[2022-06-15] MEDS: CEFTAZIDIME PENTAHYDRATE 1 G in DEXTROSE 5% WATER 50 ML IV SCH (16:20)
[2022-06-15] MEDS: NOREPINEPHRINE 32 MG in DEXT 5% WATER 218 ML IV PRN (18:39)
[2022-06-16] VITALS (95 sets, daily range): BP systolic 86–136; BP diastolic 26–95
[2022-06-16] MEDS: BLOOD SUGAR DIAGNOSTIC STRIP TEST SCH ×4 (00:17→17:31)
[2022-06-16] MEDS: DEXT 5%/0.45% NACL 1000ML 1,000 ML IV SCH ×2 (01:23→21:30)
[2022-06-16] MEDS: METRONIDAZOLE 250MG TABLET PO SCH ×3 (05:03→21:29)
[2022-06-16] MEDS: ACETAMINOPHEN 325MG TABLET PO PRN (05:03)
[2022-06-16 05:30] LABS: BASOPHILS % 0.8 % (0.0-2.0); EOSINOPHILS % 1.9 % (0.0-5.0); HEMATOCRIT. 30.8 % (42.0-52.0); HEMOGLOBIN. 10.5 g/dL (14.0-18.0); LYMPHOCYTES % 17.6 % (20.0-50.0); MEAN CORPUSCULAR HEMOGLOBIN 30.5 pg (28.0-32.0); MEAN CORPUSCULAR VOLUME 89.7 fL (80.0-94.0); MEAN PLATELET VOLUME 7.7 fl (7.4-10.4); MONOCYTES % 10.5 % (2.0-8.0); NEUTROPHILS % 69.2 % (40.0-76.0); PLATELET 68 x1000/uL (130-400); RED BLOOD CELL COUNT 3.44 mill/uL (4.7-6.1); RED CELL DISTRIBUTION WIDTH 16.2 % (11.6-14.6)
[2022-06-16 05:37] LABS: INR 1.3; PROTHROMBIN TIME 13.3 sec (9.6-11.0)
[2022-06-16] MEDS: INSULIN LISPRO 100 UNITS/ML SUBCUT SCH ×4 (06:00→17:32)
[2022-06-16] MEDS: PANTOPRAZOLE SODIUM 40 MG/VIAL IV SCH ×2 (09:05→21:29)
[2022-06-16] MEDS: LACTULOSE 20G/30ML UDC PO SCH (09:05)
[2022-06-16] MEDS: MIDODRINE HCL 5MG TABLET PO SCH ×3 (09:05→17:00)
[2022-06-16] MEDS: AMPICILLIN 1,000 MG in SODIUM CHLORIDE 0.9% 50 ML IV SCH ×2 (09:05→21:30)
[2022-06-16] MEDS: OCTREOTIDE 1,000 MCG in SODIUM CHLORIDE 0.9% 98 ML IV SCH (10:25)
[2022-06-16 14:23] LABS: BG BASE EXCESS -4.3 mmol/L (-2.0-2.0); BG CARBOXYHEMOGLOBIN 0.3 % (0.5-1.5); BG DEOXYHEMOGLOBIN 1.9 % (0.0-5.0); BG FRACTION INSPIRED OXYGEN 30; BG HCO3 ACT 20.7 mmol/L (22.0-26.0); BG METHEMOGLOBIN 0.1 % (0.0-1.5); BG OXYGEN SATURATION 98.1 % (92.0-98.5); BG OXYHEMOGLOBIN 97.7 % (94.0-97.0); BG PH 7.355 (7.350-7.450); BG PO2 117.8 mmHg (75.0-100.0); BG SAMPLE SITE RIGHT BRACHIAL; BG TOTAL HEMOGLOBIN 10.7 g/dL (12.0-18.0); BG VENT MODE VENT - CPAP
[2022-06-16] MEDS: CEFTAZIDIME PENTAHYDRATE 1 G in DEXTROSE 5% WATER 50 ML IV SCH (15:42)
[2022-06-16] MEDS: NOREPINEPHRINE 32 MG in DEXT 5% WATER 218 ML IV PRN (15:43)
[2022-06-17] VITALS (96 sets, daily range): BP systolic 71–129; BP diastolic 50–81
[2022-06-17] MEDS: OCTREOTIDE 1,000 MCG in SODIUM CHLORIDE 0.9% 98 ML IV SCH (00:53)
[2022-06-17 05:13] LABS: HEMATOCRIT. 28.9 % (42.0-52.0); HEMOGLOBIN. 9.7 g/dL (14.0-18.0); MEAN CORPUSCULAR VOLUME 89.4 fL (80.0-94.0); MEAN PLATELET VOLUME 7.2 fl (7.4-10.4); PLATELET 63 x1000/uL (130-400); RED BLOOD CELL COUNT 3.23 mill/uL (4.7-6.1); RED CELL DISTRIBUTION WIDTH 16.5 % (11.6-14.6)
[2022-06-17] MEDS: BLOOD SUGAR DIAGNOSTIC STRIP TEST SCH ×4 (06:00→17:50)
[2022-06-17] MEDS: INSULIN LISPRO 100 UNITS/ML SUBCUT SCH ×4 (06:00→17:50)
[2022-06-17] MEDS: METRONIDAZOLE 250MG TABLET PO SCH ×3 (06:33→21:52)
[2022-06-17] MEDS: PANTOPRAZOLE SODIUM 40 MG/VIAL IV SCH ×2 (08:22→21:52)
[2022-06-17] MEDS: AMPICILLIN 1,000 MG in SODIUM CHLORIDE 0.9% 50 ML IV SCH ×2 (08:22→21:52)
[2022-06-17] MEDS: LACTULOSE 20G/30ML UDC PO SCH (08:22)
[2022-06-17] MEDS: MIDODRINE HCL 5MG TABLET PO SCH ×3 (08:23→17:47)
[2022-06-17 09:52] LABS: PLATELET ESTIMATE MARKEDLY DECREASED
[2022-06-17] MEDS ORDERED: POTASSIUM CHLORIDE 20MEQ/PACKET PO SCH (11:00)
[2022-06-17 12:21] LABS: INR 1.4; PROTHROMBIN TIME 14.6 sec (9.6-11.0)
[2022-06-17] MEDS: CEFTAZIDIME PENTAHYDRATE 1 G in DEXTROSE 5% WATER 50 ML IV SCH (15:06)
[2022-06-17] MEDS: DEXT 5%/0.45% NACL 1000ML 1,000 ML IV SCH (17:50)
[2022-06-17] MEDS: NOREPINEPHRINE 32 MG in DEXT 5% WATER 218 ML IV PRN (20:46)
[2022-06-18] VITALS (100 sets, daily range): BP systolic 73–140; BP diastolic 28–90
[2022-06-18] MEDS: BLOOD SUGAR DIAGNOSTIC STRIP TEST SCH ×4 (00:19→18:21)
[2022-06-18 04:55] LABS: BASOPHILS % 0.9 % (0.0-2.0); EOSINOPHILS % 2.2 % (0.0-5.0); HEMATOCRIT. 27.9 % (42.0-52.0); HEMOGLOBIN. 9.2 g/dL (14.0-18.0); LYMPHOCYTES % 21.6 % (20.0-50.0); MEAN CORPUSCULAR HEMOGLOBIN 29.7 pg (28.0-32.0); MEAN CORPUSCULAR VOLUME 89.5 fL (80.0-94.0); MEAN PLATELET VOLUME 7.3 fl (7.4-10.4); MONOCYTES % 13.1 % (2.0-8.0); NEUTROPHILS % 62.2 % (40.0-76.0); PLATELET 59 x1000/uL (130-400); RED BLOOD CELL COUNT 3.11 mill/uL (4.7-6.1); RED CELL DISTRIBUTION WIDTH 16.5 % (11.6-14.6)
[2022-06-18] MEDS: METRONIDAZOLE 250MG TABLET PO SCH ×3 (05:55→21:13)
[2022-06-18] MEDS: INSULIN LISPRO 100 UNITS/ML SUBCUT SCH ×4 (05:56→18:22)
[2022-06-18] MEDS: MIDODRINE HCL 5MG TABLET PO SCH ×3 (09:13→17:04)
[2022-06-18] MEDS: PANTOPRAZOLE SODIUM 40 MG/VIAL IV SCH ×2 (09:13→21:13)
[2022-06-18] MEDS: LACTULOSE 20G/30ML UDC PO SCH ×2 (09:13→17:04)
[2022-06-18] MEDS: AMPICILLIN 1,000 MG in SODIUM CHLORIDE 0.9% 50 ML IV SCH ×2 (09:15→21:13)
[2022-06-18] MEDS: DEXT 5%/0.45% NACL 1000ML 1,000 ML IV SCH (12:57)
[2022-06-18] MEDS: CEFTAZIDIME PENTAHYDRATE 1 G in DEXTROSE 5% WATER 50 ML IV SCH (16:00)
[2022-06-19] VITALS (97 sets, daily range): BP systolic 72–141; BP diastolic 30–74
[2022-06-19] MEDS: BLOOD SUGAR DIAGNOSTIC STRIP TEST SCH ×5 (00:57→23:49)
[2022-06-19] MEDS: INSULIN LISPRO 100 UNITS/ML SUBCUT SCH ×5 (01:02→23:49)
[2022-06-19] MEDS: ACETAMINOPHEN 325MG TABLET PO PRN (01:04)
[2022-06-19 01:15] LABS: BASOPHILS % 0.7 % (0.0-2.0); EOSINOPHILS % 1.7 % (0.0-5.0); HEMATOCRIT. 28.2 % (42.0-52.0); HEMOGLOBIN. 9.5 g/dL (14.0-18.0); LYMPHOCYTES % 23.4 % (20.0-50.0); MEAN CORPUSCULAR HEMOGLOBIN 30.2 pg (28.0-32.0); MEAN CORPUSCULAR VOLUME 89.3 fL (80.0-94.0); MEAN PLATELET VOLUME 7.6 fl (7.4-10.4); MONOCYTES % 14.3 % (2.0-8.0); NEUTROPHILS % 59.9 % (40.0-76.0); PLATELET 69 x1000/uL (130-400); RED BLOOD CELL COUNT 3.16 mill/uL (4.7-6.1); RED CELL DISTRIBUTION WIDTH 16.5 % (11.6-14.6)
[2022-06-19 05:52] LABS: HEMOGLOBIN. 9.2 g/dL (14.0-18.0); MEAN CORPUSCULAR HEMOGLOBIN 30.4 pg (28.0-32.0); MEAN CORPUSCULAR VOLUME 89.1 fL (80.0-94.0); MEAN PLATELET VOLUME 7.5 fl (7.4-10.4); PLATELET 73 x1000/uL (130-400); RED BLOOD CELL COUNT 3.03 mill/uL (4.7-6.1); RED CELL DISTRIBUTION WIDTH 16.5 % (11.6-14.6)
[2022-06-19] MEDS: METRONIDAZOLE 250MG TABLET PO SCH ×3 (06:41→21:18)
[2022-06-19] MEDS: PANTOPRAZOLE SODIUM 40 MG/VIAL IV SCH ×2 (08:38→21:18)
[2022-06-19] MEDS: AMPICILLIN 1,000 MG in SODIUM CHLORIDE 0.9% 50 ML IV SCH ×2 (08:39→21:18)
[2022-06-19] MEDS: DEXT 5%/0.45% NACL 1000ML 1,000 ML IV SCH (08:39)
[2022-06-19 08:40] LABS: BG BASE EXCESS -5.2 mmol/L (-2.0-2.0); BG CARBOXYHEMOGLOBIN 0.3 % (0.5-1.5); BG FRACTION INSPIRED OXYGEN 30; BG HCO3 ACT 19.1 mmol/L (22.0-26.0); BG METHEMOGLOBIN 0.3 % (0.0-1.5); BG OXYHEMOGLOBIN 96.4 % (94.0-97.0); BG PCO2 32.7 mmHg (35.0-45.0); BG PH 7.384 (7.350-7.450); BG PO2 93.9 mmHg (75.0-100.0); BG SAMPLE SITE LEFT RADIAL; BG TOTAL HEMOGLOBIN 9.9 g/dL (12.0-18.0); BG TOTAL RESPIRATORY RATE 19 b/min; BG VENT MODE VENT - SIMV
[2022-06-19] MEDS ORDERED: POTASSIUM CHLORIDE 20MEQ/PACKET PO NR ×2 (09:00→13:00)
[2022-06-19] MEDS: MIDODRINE HCL 5MG TABLET PO SCH ×3 (09:11→16:12)
[2022-06-19] MEDS: LACTULOSE 20G/30ML UDC PO SCH ×2 (09:11→16:12)
[2022-06-19] MEDS ORDERED: POTASSIUM CHLORIDE 20MEQ/PACKET PO ONE (09:15)
[2022-06-19 12:39] LABS: BG BASE EXCESS -4.3 mmol/L (-2.0-2.0); BG CARBOXYHEMOGLOBIN 0.3 % (0.5-1.5); BG FRACTION INSPIRED OXYGEN 30; BG HCO3 ACT 19.7 mmol/L (22.0-26.0); BG METHEMOGLOBIN 0.3 % (0.0-1.5); BG OXYHEMOGLOBIN 96.4 % (94.0-97.0); BG PCO2 32.4 mmHg (35.0-45.0); BG PH 7.402 (7.350-7.450); BG PO2 87.3 mmHg (75.0-100.0); BG SAMPLE SITE LEFT RADIAL; BG TOTAL HEMOGLOBIN 10.5 g/dL (12.0-18.0); BG VENT MODE VENT - CPAP
[2022-06-19] MEDS: CEFTAZIDIME PENTAHYDRATE 1 G in DEXTROSE 5% WATER 50 ML IV SCH (16:12)
[2022-06-19 16:22] LABS: BG BASE EXCESS -4.9 mmol/L (-2.0-2.0); BG CARBOXYHEMOGLOBIN 0.3 % (0.5-1.5); BG HCO3 ACT 19.8 mmol/L (22.0-26.0); BG METHEMOGLOBIN 0.3 % (0.0-1.5); BG OXYHEMOGLOBIN 97.4 % (94.0-97.0); BG PCO2 35.2 mmHg (35.0-45.0); BG PH 7.368 (7.350-7.450); BG PO2 109.3 mmHg (75.0-100.0); BG SAMPLE SITE RIGHT BRACHIAL; BG TOTAL HEMOGLOBIN 10.4 g/dL (12.0-18.0); BG VENT MODE COOL AEROSOL
[2022-06-19] MEDS ORDERED: POTASSIUM CHLORIDE 20MEQ TABLET SR PO NR (21:15)
[2022-06-19 21:38] LABS: PLATELET ESTIMATE DECREASED
[2022-06-20] VITALS (73 sets, daily range): BP systolic 76–140; BP diastolic 44–119
[2022-06-20] MEDS: BLOOD SUGAR DIAGNOSTIC STRIP TEST SCH ×3 (05:39→18:14)
[2022-06-20 05:46] LABS: BASOPHILS % 0.7 % (0.0-2.0); EOSINOPHILS % 1.2 % (0.0-5.0); HEMATOCRIT. 25.2 % (42.0-52.0); HEMOGLOBIN. 8.5 g/dL (14.0-18.0); MEAN CORPUSCULAR HEMOGLOBIN 30.2 pg (28.0-32.0); MEAN CORPUSCULAR VOLUME 89.7 fL (80.0-94.0); MEAN PLATELET VOLUME 7.8 fl (7.4-10.4); MONOCYTES % 10.2 % (2.0-8.0); NEUTROPHILS % 66.9 % (40.0-76.0); RED BLOOD CELL COUNT 2.81 mill/uL (4.7-6.1); RED CELL DISTRIBUTION WIDTH 16.1 % (11.6-14.6)
[2022-06-20] MEDS: METRONIDAZOLE 250MG TABLET PO SCH ×3 (05:47→21:31)
[2022-06-20] MEDS: DEXT 5%/0.45% NACL 1000ML 1,000 ML IV SCH (05:47)
[2022-06-20] MEDS: INSULIN LISPRO 100 UNITS/ML SUBCUT SCH ×3 (05:47→18:00)
[2022-06-20 06:21] LABS: PLATELET 50 x1000/uL (130-400)
[2022-06-20] MEDS: NOREPINEPHRINE 32 MG in DEXT 5% WATER 218 ML IV PRN (08:57)
[2022-06-20] MEDS: MIDODRINE HCL 5MG TABLET PO SCH ×3 (09:04→21:28)
[2022-06-20] MEDS: PANTOPRAZOLE SODIUM 40 MG/VIAL IV SCH ×2 (09:04→21:27)
[2022-06-20] MEDS: AMPICILLIN 1,000 MG in SODIUM CHLORIDE 0.9% 50 ML IV SCH (09:04)
[2022-06-20] MEDS: MODAFINIL 200MG TABLET PO SCH (09:04)
[2022-06-20] MEDS: ACETAMINOPHEN 325MG TABLET PO PRN (21:27)
[2022-06-20] MEDS: EPOETIN ALFA-EPBX 4,000 UNIT/ML VIAL SUBCUT SCH (21:28)
[2022-06-21 00:16] VITALS: BP 82/52
[2022-06-21] MEDS: BLOOD SUGAR DIAGNOSTIC STRIP TEST SCH ×4 (00:38→17:13)
[2022-06-21] MEDS: CEFTAZIDIME PENTAHYDRATE 1 G in DEXTROSE 5% WATER 50 ML IV SCH ×2 (00:39→15:33)
[2022-06-21] MEDS: AMPICILLIN 1,000 MG in SODIUM CHLORIDE 0.9% 50 ML IV SCH ×3 (02:25→22:30)
[2022-06-21] MEDS: DEXT 5%/0.45% NACL 1000ML 1,000 ML IV SCH ×2 (02:25→22:30)
[2022-06-21 04:32] VITALS: BP 93/57
[2022-06-21] MEDS: METRONIDAZOLE 250MG TABLET PO SCH ×3 (05:01→22:30)
[2022-06-21] MEDS: MIDODRINE HCL 5MG TABLET PO SCH ×3 (05:02→22:31)
[2022-06-21] MEDS: INSULIN LISPRO 100 UNITS/ML SUBCUT SCH ×4 (05:02→17:14)
[2022-06-21] MEDS ORDERED: SODIUM CHLORIDE 0.9% 250 ML IV ONE (06:30)
[2022-06-21 08:00] VITALS: BP 94/60
[2022-06-21 08:09] LABS: BASOPHILS % 0.8 % (0.0-2.0); EOSINOPHILS % 1.4 % (0.0-5.0); HEMATOCRIT. 26.2 % (42.0-52.0); HEMOGLOBIN. 8.8 g/dL (14.0-18.0); LYMPHOCYTES % 23.5 % (20.0-50.0); MEAN CORPUSCULAR HEMOGLOBIN 30.1 pg (28.0-32.0); MEAN CORPUSCULAR VOLUME 89.8 fL (80.0-94.0); MEAN PLATELET VOLUME 7.8 fl (7.4-10.4); MONOCYTES % 8.6 % (2.0-8.0); NEUTROPHILS % 65.7 % (40.0-76.0); PLATELET 62 x1000/uL (130-400); RED BLOOD CELL COUNT 2.91 mill/uL (4.7-6.1); RED CELL DISTRIBUTION WIDTH 16.3 % (11.6-14.6)
[2022-06-21] MEDS: MODAFINIL 200MG TABLET PO SCH (09:09)
[2022-06-21] MEDS: PANTOPRAZOLE SODIUM 40 MG/VIAL IV SCH ×2 (09:09→22:30)
[2022-06-21 12:00] VITALS: BP 84/54
[2022-06-21 16:00] VITALS: BP 95/53
[2022-06-21] MEDS ORDERED: PHYTONADIONE 10MG/ML AMP SUBCUT NR (16:00)
[2022-06-21 17:32] LABS: HEPATITIS B SURFACE ANTIGEN NEGATIVE
[2022-06-21 20:00] VITALS: BP 114/66
[2022-06-22] VITALS (18 sets, daily range): BP systolic 71–98; BP diastolic 43–68
[2022-06-22] MEDS: INSULIN LISPRO 100 UNITS/ML SUBCUT SCH ×5 (06:00→21:01)
[2022-06-22] MEDS: BLOOD SUGAR DIAGNOSTIC STRIP TEST SCH ×5 (06:23→21:02)
[2022-06-22] MEDS: METRONIDAZOLE 250MG TABLET PO SCH ×3 (06:26→21:01)
[2022-06-22] MEDS: MIDODRINE HCL 5MG TABLET PO SCH ×3 (06:28→20:36)
[2022-06-22 07:59] LABS: BASOPHILS % 0.6 % (0.0-2.0); EOSINOPHILS % 1.3 % (0.0-5.0); HEMOGLOBIN. 8.3 g/dL (14.0-18.0); MEAN CORPUSCULAR HEMOGLOBIN 29.7 pg (28.0-32.0); MEAN CORPUSCULAR VOLUME 89.9 fL (80.0-94.0); MEAN PLATELET VOLUME 8.2 fl (7.4-10.4); MONOCYTES % 8.2 % (2.0-8.0); NEUTROPHILS % 72.9 % (40.0-76.0); PLATELET 64 x1000/uL (130-400); RED BLOOD CELL COUNT 2.78 mill/uL (4.7-6.1)
[2022-06-22 08:08] LABS: INR 1.8; PROTHROMBIN TIME 18.5 sec (9.6-11.0)
[2022-06-22] MEDS: PANTOPRAZOLE SODIUM 40 MG/VIAL IV SCH ×2 (08:27→20:39)
[2022-06-22] MEDS: AMPICILLIN 1,000 MG in SODIUM CHLORIDE 0.9% 50 ML IV SCH ×2 (08:27→20:36)
[2022-06-22] MEDS: MODAFINIL 200MG TABLET PO SCH (08:27)
[2022-06-22] MEDS ORDERED: PHYTONADIONE 10MG/ML AMP SUBCUT NR (11:00)
[2022-06-22] MEDS: CEFTAZIDIME PENTAHYDRATE 1 G in DEXTROSE 5% WATER 50 ML IV SCH (15:34)
[2022-06-22] MEDS: ALBUMIN HUMAN 25GM/100ML (25%) IV SCH (18:50)
[2022-06-22] MEDS: EPOETIN ALFA-EPBX 4,000 UNIT/ML VIAL SUBCUT SCH (20:51)
[2022-06-22] MEDS: DEXT 5%/0.45% NACL 1000ML 1,000 ML IV SCH (21:03)
[2022-06-23] VITALS (12 sets, daily range): BP systolic 77–108; BP diastolic 47–73
[2022-06-23] MEDS: ALBUMIN HUMAN 25GM/100ML (25%) IV SCH ×4 (02:04→17:40)
[2022-06-23 03:57] LABS: BASOPHILS % 0.9 % (0.0-2.0); EOSINOPHILS % 0.7 % (0.0-5.0); HEMATOCRIT. 25.2 % (42.0-52.0); HEMOGLOBIN. 8.5 g/dL (14.0-18.0); LYMPHOCYTES % 20.2 % (20.0-50.0); MEAN CORPUSCULAR HEMOGLOBIN 30.3 pg (28.0-32.0); MEAN CORPUSCULAR VOLUME 90.3 fL (80.0-94.0); MEAN PLATELET VOLUME 7.7 fl (7.4-10.4); MONOCYTES % 7.6 % (2.0-8.0); NEUTROPHILS % 70.6 % (40.0-76.0); PLATELET 61 x1000/uL (130-400); RED CELL DISTRIBUTION WIDTH 16.4 % (11.6-14.6)
[2022-06-23 04:06] LABS: INR 1.8; PROTHROMBIN TIME 18.9 sec (9.6-11.0)
[2022-06-23] MEDS: METRONIDAZOLE 250MG TABLET PO SCH ×3 (05:05→22:55)
[2022-06-23] MEDS: MIDODRINE HCL 5MG TABLET PO SCH ×3 (05:05→22:54)
[2022-06-23] MEDS: BLOOD SUGAR DIAGNOSTIC STRIP TEST SCH ×4 (06:00→22:00)
[2022-06-23] MEDS: INSULIN LISPRO 100 UNITS/ML SUBCUT SCH ×4 (06:00→22:00)
[2022-06-23] MEDS ORDERED: SODIUM BICARBONATE 4% (2.4MEQ) 5ML VIAL IV ONE (08:22)
[2022-06-23] MEDS ORDERED: LIDOCAINE HCL 1% 10 MG/ML 10ML VIAL ONE (08:22)
[2022-06-23] MEDS ORDERED: MIDODRINE HCL 5MG TABLET PO SCH (09:05)
[2022-06-23] MEDS: PANTOPRAZOLE SODIUM 40 MG/VIAL IV SCH ×2 (09:09→22:55)
[2022-06-23] MEDS: AMPICILLIN 1,000 MG in SODIUM CHLORIDE 0.9% 50 ML IV SCH ×2 (09:09→22:54)
[2022-06-23] MEDS: MODAFINIL 200MG TABLET PO SCH (09:09)
[2022-06-23] MEDS: DEXT 5%/0.45% NACL 1000ML 1,000 ML IV SCH (12:44)
[2022-06-23] MEDS: CEFTAZIDIME PENTAHYDRATE 1 G in DEXTROSE 5% WATER 50 ML IV SCH (17:40)
[2022-06-24] VITALS (31 sets, daily range): BP systolic 81–131; BP diastolic 53–85
[2022-06-24] MEDS: ALBUMIN HUMAN 25GM/100ML (25%) IV SCH
[2022-06-24] MEDS ORDERED: ALBUMIN HUMAN 25GM/100ML (25%) IV SCH (01:30)
[2022-06-24] MEDS: INSULIN LISPRO 100 UNITS/ML SUBCUT SCH ×3 (06:00→18:00)
[2022-06-24] MEDS: BLOOD SUGAR DIAGNOSTIC STRIP TEST SCH ×3 (06:08→18:05)
[2022-06-24] MEDS: METRONIDAZOLE 250MG TABLET PO SCH ×3 (06:11→22:00)
[2022-06-24] MEDS: MIDODRINE HCL 5MG TABLET PO SCH ×3 (06:11→22:00)
[2022-06-24] MEDS: DEXT 5%/0.45% NACL 1000ML 1,000 ML IV SCH (06:17)
[2022-06-24] MEDS: ACETAMINOPHEN 325MG TABLET PO PRN ×2 (06:52→13:49)
[2022-06-24] MEDS: AMPICILLIN 1,000 MG in SODIUM CHLORIDE 0.9% 50 ML IV SCH ×2 (09:29→21:00)
[2022-06-24] MEDS: PANTOPRAZOLE SODIUM 40 MG/VIAL IV SCH ×2 (09:29→21:00)
[2022-06-24] MEDS ORDERED: ALBUMIN HUMAN 12.5GM/50ML (25%) IV NR (14:00)
[2022-06-24 16:39] LABS: BASOPHILS % 0.3 % (0.0-2.0); EOSINOPHILS % 0.8 % (0.0-5.0); HEMATOCRIT. 24.7 % (42.0-52.0); HEMOGLOBIN. 8.1 g/dL (14.0-18.0); LYMPHOCYTES % 21.8 % (20.0-50.0); MEAN CORPUSCULAR HEMOGLOBIN 30.4 pg (28.0-32.0); MEAN CORPUSCULAR VOLUME 92.2 fL (80.0-94.0); MEAN PLATELET VOLUME 7.8 fl (7.4-10.4); MONOCYTES % 8.6 % (2.0-8.0); NEUTROPHILS % 68.5 % (40.0-76.0); RED BLOOD CELL COUNT 2.68 mill/uL (4.7-6.1); RED CELL DISTRIBUTION WIDTH 17.4 % (11.6-14.6)
[2022-06-24 16:56] LABS: PLATELET 46 x1000/uL (130-400)
[2022-06-24 17:29] LABS: BG BASE EXCESS -4.3 mmol/L (-2.0-2.0); BG CARBOXYHEMOGLOBIN 0.4 % (0.5-1.5); BG DEOXYHEMOGLOBIN 5.5 % (0.0-5.0); BG FRACTION INSPIRED OXYGEN 21; BG HCO3 ACT 20.5 mmol/L (22.0-26.0); BG METHEMOGLOBIN 0.5 % (0.0-1.5); BG OXYGEN SATURATION 94.5 % (92.0-98.5); BG OXYHEMOGLOBIN 93.6 % (94.0-97.0); BG PCO2 36.4 mmHg (35.0-45.0); BG PH 7.369 (7.350-7.450); BG SAMPLE SITE LEFT BRACHIAL; BG TOTAL HEMOGLOBIN 8.8 g/dL (12.0-18.0); BG VENT MODE ROOM AIR
[2022-06-24] MEDS: NOREPINEPHRINE 32 MG in DEXT 5% WATER 218 ML IV PRN (18:18)
[2022-06-24] MEDS ORDERED: MORPHINE SULFATE 2 MG/ML CPJ (NOT FOR IM USE) IV PRN (20:45)
[2022-06-25] VITALS (137 sets, daily range): BP systolic 44–160; BP diastolic 26–107
[2022-06-25] MEDS: DEXT 5%/0.45% NACL 1000ML 1,000 ML IV SCH (04:56)
[2022-06-25] MEDS: MIDODRINE HCL 5MG TABLET PO SCH ×3 (05:11→21:34)
[2022-06-25 05:32] LABS: BASOPHILS % 0.2 % (0.0-2.0); EOSINOPHILS % 0.1 % (0.0-5.0); HEMATOCRIT. 25.5 % (42.0-52.0); HEMOGLOBIN. 8.6 g/dL (14.0-18.0); LYMPHOCYTES % 8.6 % (20.0-50.0); MEAN CORPUSCULAR HEMOGLOBIN 30.4 pg (28.0-32.0); MEAN CORPUSCULAR VOLUME 90.2 fL (80.0-94.0); MEAN PLATELET VOLUME 7.5 fl (7.4-10.4); MONOCYTES % 7.5 % (2.0-8.0); NEUTROPHILS % 83.6 % (40.0-76.0); PLATELET 86 x1000/uL (130-400); RED BLOOD CELL COUNT 2.83 mill/uL (4.7-6.1)
[2022-06-25] MEDS: BLOOD SUGAR DIAGNOSTIC STRIP TEST SCH ×4 (06:00→17:39)
[2022-06-25] MEDS: NOREPINEPHRINE 32 MG in DEXT 5% WATER 218 ML IV PRN ×2 (07:08→15:36)
[2022-06-25] MEDS: PANTOPRAZOLE SODIUM 40 MG/VIAL IV SCH ×2 (08:54→21:34)
[2022-06-25] MEDS: INSULIN LISPRO 100 UNITS/ML SUBCUT SCH ×3 (11:23→17:20)
[2022-06-25] MEDS ORDERED: VANCOMYCIN 1G PREMIX 200 ML IV NR (15:00)
[2022-06-25] MEDS: EPOETIN ALFA-EPBX 4,000 UNIT/ML VIAL SUBCUT SCH (21:34)
[2022-06-26] VITALS (104 sets, daily range): BP systolic 63–127; BP diastolic 45–89
[2022-06-26] MEDS: BLOOD SUGAR DIAGNOSTIC STRIP TEST SCH ×4 (00:43→17:51)
[2022-06-26] MEDS: DEXT 5%/0.45% NACL 1000ML 1,000 ML IV SCH ×2 (02:00→21:38)
[2022-06-26] MEDS: MIDODRINE HCL 5MG TABLET PO SCH ×3 (05:07→21:39)
[2022-06-26] MEDS: NOREPINEPHRINE 32 MG in DEXT 5% WATER 218 ML IV PRN ×2 (05:07→21:41)
[2022-06-26 05:29] LABS: BASOPHILS % 0.8 % (0.0-2.0); EOSINOPHILS % 0.5 % (0.0-5.0); HEMATOCRIT. 29.2 % (42.0-52.0); HEMOGLOBIN. 9.7 g/dL (14.0-18.0); LYMPHOCYTES % 11.8 % (20.0-50.0); MEAN CORPUSCULAR HEMOGLOBIN 30.5 pg (28.0-32.0); MEAN CORPUSCULAR VOLUME 91.5 fL (80.0-94.0); MONOCYTES % 11.4 % (2.0-8.0); NEUTROPHILS % 75.5 % (40.0-76.0); PLATELET 69 x1000/uL (130-400); RED CELL DISTRIBUTION WIDTH 17.9 % (11.6-14.6)
[2022-06-26] MEDS: INSULIN LISPRO 100 UNITS/ML SUBCUT SCH ×4 (06:00→17:51)
[2022-06-26] MEDS: CEFEPIME 1,000 MG in DEXTROSE 5% WATER 50 ML IV SCH (09:04)
[2022-06-26] MEDS: PANTOPRAZOLE SODIUM 40 MG/VIAL IV SCH ×2 (09:04→21:49)
[2022-06-26] MEDS ORDERED: ALBUMIN HUMAN 25GM/100ML (25%) IV NR (10:45)
[2022-06-26] MEDS: METRONIDAZOLE 250MG TABLET PO SCH ×2 (15:50→21:38)
[2022-06-27] VITALS (90 sets, daily range): BP systolic 46–134; BP diastolic 31–82
[2022-06-27] MEDS: BLOOD SUGAR DIAGNOSTIC STRIP TEST SCH ×4 (00:46→17:44)
[2022-06-27] MEDS: INSULIN LISPRO 100 UNITS/ML SUBCUT SCH ×5 (06:00→23:55)
[2022-06-27] MEDS: METRONIDAZOLE 250MG TABLET PO SCH ×3 (06:11→22:21)
[2022-06-27] MEDS: MIDODRINE HCL 5MG TABLET PO SCH ×3 (06:14→22:22)
[2022-06-27] MEDS ORDERED: MIDODRINE HCL 2.5MG TABLET PO SCH (09:00)
[2022-06-27] MEDS: CEFEPIME 1,000 MG in DEXTROSE 5% WATER 50 ML IV SCH (09:12)
[2022-06-27] MEDS: PANTOPRAZOLE SODIUM 40 MG/VIAL IV SCH ×2 (09:12→22:20)
[2022-06-27] MEDS ORDERED: NALOXONE HCL 0.4MG/ML VIAL IV PRN (09:15)
[2022-06-27 10:57] LABS: BASOPHILS % 0.5 % (0.0-2.0); EOSINOPHILS % 0.5 % (0.0-5.0); HEMATOCRIT. 28.2 % (42.0-52.0); HEMOGLOBIN. 9.5 g/dL (14.0-18.0); LYMPHOCYTES % 9.3 % (20.0-50.0); MEAN CORPUSCULAR HEMOGLOBIN 30.5 pg (28.0-32.0); MEAN CORPUSCULAR VOLUME 90.4 fL (80.0-94.0); MEAN PLATELET VOLUME 8.1 fl (7.4-10.4); MONOCYTES % 6.8 % (2.0-8.0); NEUTROPHILS % 82.9 % (40.0-76.0); RED BLOOD CELL COUNT 3.12 mill/uL (4.7-6.1); RED CELL DISTRIBUTION WIDTH 17.6 % (11.6-14.6)
[2022-06-27] MEDS ORDERED: VANCOMYCIN 750MG PREMIX 150 ML IV NR (11:00)
[2022-06-27] MEDS: DEXT 5%/0.45% NACL 1000ML 1,000 ML IV SCH (17:04)
[2022-06-27] MEDS: NOREPINEPHRINE 32 MG in DEXT 5% WATER 218 ML IV PRN ×2 (17:05→20:00)
[2022-06-27] MEDS ORDERED: ALBUMIN HUMAN 25GM/100ML (25%) IV NR (19:00)
[2022-06-28] VITALS (100 sets, daily range): BP systolic 63–146; BP diastolic 23–102
[2022-06-28 04:29] LABS: BASOPHILS % 0.5 % (0.0-2.0); HEMATOCRIT. 24.7 % (42.0-52.0); HEMOGLOBIN. 8.4 g/dL (14.0-18.0); LYMPHOCYTES % 9.8 % (20.0-50.0); MEAN CORPUSCULAR HEMOGLOBIN 30.8 pg (28.0-32.0); MEAN CORPUSCULAR VOLUME 91.1 fL (80.0-94.0); MONOCYTES % 9.8 % (2.0-8.0); NEUTROPHILS % 78.9 % (40.0-76.0); RED BLOOD CELL COUNT 2.71 mill/uL (4.7-6.1)
[2022-06-28 04:47] LABS: PLATELET 37 x1000/uL (130-400)
[2022-06-28 05:39] LABS: INR 1.8; PROTHROMBIN TIME 18.3 sec (9.6-11.0)
[2022-06-28] MEDS: BLOOD SUGAR DIAGNOSTIC STRIP TEST SCH ×5 (06:00→23:16)
[2022-06-28] MEDS: INSULIN LISPRO 100 UNITS/ML SUBCUT SCH ×4 (06:33→23:19)
[2022-06-28] MEDS: METRONIDAZOLE 250MG TABLET PO SCH ×3 (06:34→21:16)
[2022-06-28] MEDS: MIDODRINE HCL 5MG TABLET PO SCH ×3 (06:35→21:16)
[2022-06-28] MEDS ORDERED: POTASSIUM CHLORIDE 20MEQ/PACKET PO NR (07:15)
[2022-06-28 11:38] LABS: PLATELET 42 x1000/uL (130-400)
[2022-06-28] MEDS: CEFEPIME 1,000 MG in DEXTROSE 5% WATER 50 ML IV SCH (12:16)
[2022-06-28] MEDS: PANTOPRAZOLE SODIUM 40 MG/VIAL IV SCH ×2 (12:16→21:16)
[2022-06-28] MEDS: NOREPINEPHRINE 32 MG in DEXT 5% WATER 218 ML IV PRN (15:10)
[2022-06-29] VITALS (97 sets, daily range): BP systolic 55–128; BP diastolic 45–103
[2022-06-29 05:32] LABS: BASOPHILS % 0.9 % (0.0-2.0); EOSINOPHILS % 0.6 % (0.0-5.0); HEMATOCRIT. 27.9 % (42.0-52.0); HEMOGLOBIN. 9.5 g/dL (14.0-18.0); LYMPHOCYTES % 12.7 % (20.0-50.0); MEAN CORPUSCULAR HEMOGLOBIN 30.9 pg (28.0-32.0); MEAN CORPUSCULAR VOLUME 91.1 fL (80.0-94.0); MEAN PLATELET VOLUME 9.4 fl (7.4-10.4); MONOCYTES % 13.3 % (2.0-8.0); NEUTROPHILS % 72.5 % (40.0-76.0); RED BLOOD CELL COUNT 3.07 mill/uL (4.7-6.1); RED CELL DISTRIBUTION WIDTH 18.4 % (11.6-14.6)
[2022-06-29] MEDS: MIDODRINE HCL 5MG TABLET PO SCH ×3 (05:39→21:19)
[2022-06-29] MEDS: METRONIDAZOLE 250MG TABLET PO SCH ×3 (05:39→21:19)
[2022-06-29] MEDS: INSULIN LISPRO 100 UNITS/ML SUBCUT SCH ×4 (06:00→23:06)
[2022-06-29] MEDS: BLOOD SUGAR DIAGNOSTIC STRIP TEST SCH ×4 (06:00→23:05)
[2022-06-29 06:02] LABS: PLATELET 40 x1000/uL (130-400)
[2022-06-29] MEDS: PANTOPRAZOLE SODIUM 40 MG/VIAL IV SCH ×2 (08:46→21:19)
[2022-06-29] MEDS: CEFEPIME 1,000 MG in DEXTROSE 5% WATER 50 ML IV SCH (08:46)
[2022-06-29] MEDS: NOREPINEPHRINE 32 MG in DEXT 5% WATER 218 ML IV PRN (18:02)
[2022-06-30] VITALS (100 sets, daily range): BP systolic 44–180; BP diastolic 27–169
[2022-06-30] MEDS: METRONIDAZOLE 250MG TABLET PO SCH ×3 (05:39→22:33)
[2022-06-30] MEDS: INSULIN LISPRO 100 UNITS/ML SUBCUT SCH ×3 (05:40→18:00)
[2022-06-30] MEDS: MIDODRINE HCL 5MG TABLET PO SCH ×3 (05:40→22:33)
[2022-06-30] MEDS: BLOOD SUGAR DIAGNOSTIC STRIP TEST SCH ×3 (05:40→18:00)
[2022-06-30 05:42] LABS: BASOPHILS % 0.8 % (0.0-2.0); EOSINOPHILS % 1.6 % (0.0-5.0); HEMATOCRIT. 27.7 % (42.0-52.0); HEMOGLOBIN. 9.5 g/dL (14.0-18.0); LYMPHOCYTES % 16.1 % (20.0-50.0); MEAN CORPUSCULAR HEMOGLOBIN 30.9 pg (28.0-32.0); MEAN CORPUSCULAR VOLUME 90.4 fL (80.0-94.0); MEAN PLATELET VOLUME 8.7 fl (7.4-10.4); MONOCYTES % 12.2 % (2.0-8.0); NEUTROPHILS % 69.3 % (40.0-76.0); RED BLOOD CELL COUNT 3.07 mill/uL (4.7-6.1); RED CELL DISTRIBUTION WIDTH 18.7 % (11.6-14.6)
[2022-06-30 06:01] LABS: PLATELET 44 x1000/uL (130-400)
[2022-06-30] MEDS: PANTOPRAZOLE SODIUM 40 MG/VIAL IV SCH ×2 (09:01→20:39)
[2022-06-30] MEDS: CEFEPIME 1,000 MG in DEXTROSE 5% WATER 50 ML IV SCH (09:01)
[2022-06-30] MEDS: ACETAMINOPHEN 325MG TABLET PO PRN ×2 (13:23→20:39)
[2022-06-30] MEDS: NOREPINEPHRINE 32 MG in DEXT 5% WATER 218 ML IV PRN (20:40)
[2022-07-01] VITALS (102 sets, daily range): BP systolic 63–143; BP diastolic 40–91
[2022-07-01 04:44] LABS: PHOSPHORUS 5.1 mg/dL (2.5-4.9)
[2022-07-01 05:25] LABS: BASOPHILS % 0.2 % (0.0-2.0); EOSINOPHILS % 0.2 % (0.0-5.0); HEMATOCRIT. 33.1 % (42.0-52.0); HEMOGLOBIN. 10.9 g/dL (14.0-18.0); LYMPHOCYTES % 10.9 % (20.0-50.0); MEAN CORPUSCULAR HEMOGLOBIN 30.9 pg (28.0-32.0); MEAN CORPUSCULAR VOLUME 94.3 fL (80.0-94.0); MEAN PLATELET VOLUME 8.8 fl (7.4-10.4); MONOCYTES % 10.9 % (2.0-8.0); NEUTROPHILS % 77.8 % (40.0-76.0); PLATELET 57 x1000/uL (130-400); RED BLOOD CELL COUNT 3.52 mill/uL (4.7-6.1); RED CELL DISTRIBUTION WIDTH 20.5 % (11.6-14.6)
[2022-07-01] MEDS: MIDODRINE HCL 5MG TABLET PO SCH ×3 (05:27→21:08)
[2022-07-01] MEDS: METRONIDAZOLE 250MG TABLET PO SCH ×2 (05:27→13:33)
[2022-07-01] MEDS: BLOOD SUGAR DIAGNOSTIC STRIP TEST SCH ×4 (06:05→21:08)
[2022-07-01] MEDS: INSULIN LISPRO 100 UNITS/ML SUBCUT SCH ×4 (06:05→21:18)
[2022-07-01] MEDS: PANTOPRAZOLE SODIUM 40 MG/VIAL IV SCH ×2 (08:26→21:08)
[2022-07-01] MEDS ORDERED: ALBUMIN HUMAN 25GM/100ML (25%) IV NR (11:15)
[2022-07-02] VITALS (96 sets, daily range): BP systolic 42–147; BP diastolic 25–101
[2022-07-02 05:34] LABS: BASOPHILS % 0.2 % (0.0-2.0); EOSINOPHILS % 1.1 % (0.0-5.0); HEMATOCRIT. 25.7 % (42.0-52.0); HEMOGLOBIN. 8.6 g/dL (14.0-18.0); LYMPHOCYTES % 13.7 % (20.0-50.0); MEAN CORPUSCULAR HEMOGLOBIN 31.5 pg (28.0-32.0); MEAN CORPUSCULAR VOLUME 93.8 fL (80.0-94.0); MEAN PLATELET VOLUME 8.7 fl (7.4-10.4); MONOCYTES % 11.4 % (2.0-8.0); NEUTROPHILS % 73.6 % (40.0-76.0); PLATELET 62 x1000/uL (130-400); RED BLOOD CELL COUNT 2.74 mill/uL (4.7-6.1); RED CELL DISTRIBUTION WIDTH 19.4 % (11.6-14.6)
[2022-07-02 05:39] LABS: PHOSPHORUS 4.7 mg/dL (2.5-4.9)
[2022-07-02] MEDS: MIDODRINE HCL 5MG TABLET PO SCH ×3 (06:15→21:47)
[2022-07-02] MEDS: INSULIN LISPRO 100 UNITS/ML SUBCUT SCH ×4 (07:50→21:00)
[2022-07-02] MEDS: BLOOD SUGAR DIAGNOSTIC STRIP TEST SCH ×4 (07:58→21:00)
[2022-07-02] MEDS ORDERED: LIDOCAINE HCL 1% 30ML VIAL (10MG/ML) ONE (08:14)
[2022-07-02] MEDS: PANTOPRAZOLE SODIUM 40 MG/VIAL IV SCH ×2 (08:35→21:01)
[2022-07-02] MEDS: NOREPINEPHRINE 32 MG in DEXT 5% WATER 218 ML IV PRN (10:33)
[2022-07-02] MEDS: FLUDROCORTISONE ACETATE 0.1MG TABLET PO SCH (10:33)
[2022-07-02] MEDS: ACETAMINOPHEN 325MG TABLET PO PRN (14:43)
[2022-07-02] MEDS: MEGESTROL ACETATE 400 MG/10 ML UDC PO SCH (15:02)
[2022-07-02 18:46] LABS: HEPATITIS B SURFACE ANTIGEN NEGATIVE
[2022-07-03] VITALS (75 sets, daily range): BP systolic 73–136; BP diastolic 39–117
[2022-07-03] MEDS: NOREPINEPHRINE 32 MG in DEXT 5% WATER 218 ML IV PRN ×2 (00:52→17:07)
[2022-07-03] MEDS: ACETAMINOPHEN 325MG TABLET PO PRN ×2 (04:15→21:34)
[2022-07-03 05:31] LABS: BASOPHILS % 0.1 % (0.0-2.0); EOSINOPHILS % 0.2 % (0.0-5.0); HEMATOCRIT. 29.8 % (42.0-52.0); HEMOGLOBIN. 10.2 g/dL (14.0-18.0); LYMPHOCYTES % 12.1 % (20.0-50.0); MEAN CORPUSCULAR HEMOGLOBIN 32.2 pg (28.0-32.0); MEAN CORPUSCULAR VOLUME 94.4 fL (80.0-94.0); MEAN PLATELET VOLUME 8.4 fl (7.4-10.4); MONOCYTES % 13.3 % (2.0-8.0); NEUTROPHILS % 74.3 % (40.0-76.0); PLATELET 87 x1000/uL (130-400); RED BLOOD CELL COUNT 3.16 mill/uL (4.7-6.1); RED CELL DISTRIBUTION WIDTH 20.4 % (11.6-14.6)
[2022-07-03] MEDS: MIDODRINE HCL 5MG TABLET PO SCH ×3 (05:45→21:09)
[2022-07-03] MEDS: BLOOD SUGAR DIAGNOSTIC STRIP TEST SCH ×4 (08:01→21:08)
[2022-07-03] MEDS: PANTOPRAZOLE SODIUM 40 MG/VIAL IV SCH ×2 (08:10→21:09)
[2022-07-03] MEDS: FLUDROCORTISONE ACETATE 0.1MG TABLET PO SCH (08:10)
[2022-07-03] MEDS: MEGESTROL ACETATE 400 MG/10 ML UDC PO SCH (08:10)
[2022-07-03] MEDS: INSULIN LISPRO 100 UNITS/ML SUBCUT SCH ×4 (08:55→21:00)
[2022-07-03] MEDS ORDERED: VISCOUS LIDOCAINE 2% 15 ML UDC MM PRN (13:30)
[2022-07-03 20:58] LABS: INR 1.7; PROTHROMBIN TIME 17.6 sec (9.6-11.0)
[2022-07-04] VITALS (93 sets, daily range): BP systolic 53–160; BP diastolic 16–98
[2022-07-04] MEDS: MIDODRINE HCL 5MG TABLET PO SCH ×4 (06:00→21:51)
[2022-07-04 06:36] LABS: BASOPHILS % 0.3 % (0.0-2.0); EOSINOPHILS % 0.2 % (0.0-5.0); HEMATOCRIT. 27.4 % (42.0-52.0); HEMOGLOBIN. 9.5 g/dL (14.0-18.0); LYMPHOCYTES % 9.9 % (20.0-50.0); MEAN CORPUSCULAR HEMOGLOBIN 31.9 pg (28.0-32.0); MEAN CORPUSCULAR VOLUME 92.7 fL (80.0-94.0); MEAN PLATELET VOLUME 8.7 fl (7.4-10.4); MONOCYTES % 8.8 % (2.0-8.0); NEUTROPHILS % 80.8 % (40.0-76.0); PLATELET 100 x1000/uL (130-400); RED BLOOD CELL COUNT 2.96 mill/uL (4.7-6.1); RED CELL DISTRIBUTION WIDTH 20.1 % (11.6-14.6)
[2022-07-04] MEDS: NOREPINEPHRINE 32 MG in DEXT 5% WATER 218 ML IV PRN ×2 (06:50→17:50)
[2022-07-04] MEDS: INSULIN LISPRO 100 UNITS/ML SUBCUT SCH ×4 (07:50→21:00)
[2022-07-04] MEDS: BLOOD SUGAR DIAGNOSTIC STRIP TEST SCH ×4 (08:18→21:51)
[2022-07-04] MEDS: PANTOPRAZOLE SODIUM 40 MG/VIAL IV SCH ×2 (08:22→21:50)
[2022-07-04] MEDS: MEGESTROL ACETATE 400 MG/10 ML UDC PO SCH (08:23)
[2022-07-04] MEDS: FLUDROCORTISONE ACETATE 0.1MG TABLET PO SCH (08:23)
[2022-07-04] MEDS ORDERED: ALBUMIN HUMAN 25GM/100ML (25%) IV SCH (13:00)
[2022-07-05] VITALS (114 sets, daily range): BP systolic 55–121; BP diastolic 21–84
[2022-07-05] MEDS: PHENOL/SODIUM PHENOLATE 1.4% SRPAY 177ML MM SCH ×3 (00:39→23:53)
[2022-07-05] MEDS: NOREPINEPHRINE 32 MG in DEXT 5% WATER 218 ML IV PRN ×3 (03:39→20:43)
[2022-07-05 05:29] LABS: BASOPHILS % 0.1 % (0.0-2.0); EOSINOPHILS % 0.1 % (0.0-5.0); HEMATOCRIT. 28.1 % (42.0-52.0); HEMOGLOBIN. 9.2 g/dL (14.0-18.0); LYMPHOCYTES % 8.4 % (20.0-50.0); MEAN CORPUSCULAR HEMOGLOBIN 31.8 pg (28.0-32.0); MEAN CORPUSCULAR VOLUME 97.8 fL (80.0-94.0); MEAN PLATELET VOLUME 8.5 fl (7.4-10.4); MONOCYTES % 5.1 % (2.0-8.0); NEUTROPHILS % 86.3 % (40.0-76.0); PLATELET 91 x1000/uL (130-400); RED BLOOD CELL COUNT 2.88 mill/uL (4.7-6.1)
[2022-07-05] MEDS: MIDODRINE HCL 5MG TABLET PO SCH ×4 (06:00→21:25)
[2022-07-05] MEDS: INSULIN LISPRO 100 UNITS/ML SUBCUT SCH ×4 (07:50→20:37)
[2022-07-05] MEDS: BLOOD SUGAR DIAGNOSTIC STRIP TEST SCH ×4 (07:50→20:34)
[2022-07-05] MEDS: MEGESTROL ACETATE 400 MG/10 ML UDC PO SCH (09:00)
[2022-07-05] MEDS: FLUDROCORTISONE ACETATE 0.1MG TABLET PO SCH (09:00)
[2022-07-05] MEDS: PANTOPRAZOLE SODIUM 40 MG/VIAL IV SCH ×2 (09:10→20:41)
[2022-07-05 11:11] LABS: PLATELET ESTIMATE DECREASED
[2022-07-06] VITALS (94 sets, daily range): BP systolic 71–114; BP diastolic 39–75
[2022-07-06] MEDS: NOREPINEPHRINE 32 MG in DEXT 5% WATER 218 ML IV PRN ×3 (03:53→17:56)
[2022-07-06 05:28] LABS: HEMATOCRIT. 28.1 % (42.0-52.0); HEMOGLOBIN. 9.4 g/dL (14.0-18.0); MEAN PLATELET VOLUME 8.4 fl (7.4-10.4); PLATELET 85 x1000/uL (130-400); RED BLOOD CELL COUNT 2.93 mill/uL (4.7-6.1); RED CELL DISTRIBUTION WIDTH 21.5 % (11.6-14.6)
[2022-07-06] MEDS: MIDODRINE HCL 5MG TABLET PO SCH ×4 (06:00→22:12)
[2022-07-06] MEDS: INSULIN LISPRO 100 UNITS/ML SUBCUT SCH ×4 (07:50→20:47)
[2022-07-06] MEDS: BLOOD SUGAR DIAGNOSTIC STRIP TEST SCH ×4 (07:51→20:22)
[2022-07-06] MEDS: PANTOPRAZOLE SODIUM 40 MG/VIAL IV SCH ×2 (09:03→20:43)
[2022-07-06] MEDS: FLUDROCORTISONE ACETATE 0.1MG TABLET PO SCH (09:03)
[2022-07-06] MEDS: MEGESTROL ACETATE 400 MG/10 ML UDC PO SCH (09:03)
[2022-07-06 09:20] LABS: NUCLEATED RED BLOOD CELLS 3 /100 WBC; PLATELET ESTIMATE DECREASED
[2022-07-06] MEDS: DOPAMINE 400MG/250ML PREMIX 250 ML IV PRN ×3 (09:48→22:26)
[2022-07-06] MEDS: PHENOL/SODIUM PHENOLATE 1.4% SRPAY 177ML MM SCH (12:33)
[2022-07-06 15:54] LABS: BG BASE EXCESS -15.6 mmol/L (-2.0-2.0); BG CARBOXYHEMOGLOBIN 0.2 % (0.5-1.5); BG DEOXYHEMOGLOBIN 10.1 % (0.0-5.0); BG FRACTION INSPIRED OXYGEN 44; BG HCO3 ACT 12.6 mmol/L (22.0-26.0); BG METHEMOGLOBIN 0.3 % (0.0-1.5); BG OXYGEN SATURATION 89.8 % (92.0-98.5); BG OXYHEMOGLOBIN 89.4 % (94.0-97.0); BG PCO2 38.8 mmHg (35.0-45.0); BG PO2 75.9 mmHg (75.0-100.0); BG SAMPLE SITE RIGHT BRACHIAL; BG TOTAL HEMOGLOBIN 10.1 g/dL (12.0-18.0); BG VENT MODE MASK - SIMPLE
[2022-07-06] MEDS ORDERED: SODIUM BICARBONATE 8.4% 1 MEQ/ML 50ML SYR IV NR (16:15)
[2022-07-06] MEDS ORDERED: VANCOMYCIN 1,500 MG in DEXT 5% WATER 250 ML IV NR (18:00)
[2022-07-06] MEDS: MEROPENEM 500 MG in SODIUM CHLORIDE 0.9% 50 ML IV SCH (20:43)
[2022-07-07] VITALS (77 sets, daily range): BP systolic 65–111; BP diastolic 17–63
[2022-07-07] MEDS: PHENOL/SODIUM PHENOLATE 1.4% SRPAY 177ML MM SCH ×2 (00:07→12:31)
[2022-07-07] MEDS: NOREPINEPHRINE 32 MG in DEXT 5% WATER 218 ML IV PRN ×4 (00:34→20:16)
[2022-07-07 00:47] LABS: HEPATITIS B SURFACE ANTIGEN NEGATIVE
[2022-07-07] MEDS: DOPAMINE 400MG/250ML PREMIX 250 ML IV PRN ×5 (02:49→21:09)
[2022-07-07] MEDS: MIDODRINE HCL 5MG TABLET PO SCH ×3 (05:46→22:00)
[2022-07-07 06:04] LABS: HEMATOCRIT. 28.1 % (42.0-52.0); HEMOGLOBIN. 8.9 g/dL (14.0-18.0); MEAN CORPUSCULAR HEMOGLOBIN 31.1 pg (28.0-32.0); MEAN CORPUSCULAR VOLUME 98.4 fL (80.0-94.0); MEAN PLATELET VOLUME 8.3 fl (7.4-10.4); PLATELET 69 x1000/uL (130-400); RED BLOOD CELL COUNT 2.86 mill/uL (4.7-6.1); RED CELL DISTRIBUTION WIDTH 22.3 % (11.6-14.6)
[2022-07-07] MEDS: INSULIN LISPRO 100 UNITS/ML SUBCUT SCH ×4 (07:59→21:00)
[2022-07-07] MEDS: BLOOD SUGAR DIAGNOSTIC STRIP TEST SCH ×4 (07:59→21:00)
[2022-07-07] MEDS: FLUDROCORTISONE ACETATE 0.1MG TABLET PO SCH (09:00)
[2022-07-07] MEDS: MEGESTROL ACETATE 400 MG/10 ML UDC PO SCH (09:00)
[2022-07-07] MEDS: PANTOPRAZOLE SODIUM 40 MG/VIAL IV SCH ×2 (09:28→21:35)
[2022-07-07] MEDS: VASOPRESSIN 20 UNIT in SODIUM CHLORIDE 0.9% 99 ML IV PRN ×2 (09:50→19:10)
[2022-07-07 10:13] LABS: PLATELET ESTIMATE DECREASED
[2022-07-07] MEDS: MEROPENEM 500 MG in SODIUM CHLORIDE 0.9% 50 ML IV SCH (21:35)
[2022-07-07] MEDS: PHENYLEPHRINE 100 MG in DEXT 5% WATER 240 ML IV PRN (22:50)
[2022-07-08] VITALS (71 sets, daily range): BP systolic 40–115; BP diastolic 18–75
[2022-07-08] MEDS: DOPAMINE 400MG/250ML PREMIX 250 ML IV PRN ×4 (01:37→13:47)
[2022-07-08] MEDS: NOREPINEPHRINE 32 MG in DEXT 5% WATER 218 ML IV PRN ×2 (03:00→09:52)
[2022-07-08] MEDS: VASOPRESSIN 20 UNIT in SODIUM CHLORIDE 0.9% 99 ML IV PRN ×3 (03:32→13:46)
[2022-07-08] MEDS: MIDODRINE HCL 5MG TABLET PO SCH ×2 (05:55→13:06)
[2022-07-08] MEDS: BLOOD SUGAR DIAGNOSTIC STRIP TEST SCH ×3 (08:18→17:50)
[2022-07-08] MEDS: PANTOPRAZOLE SODIUM 40 MG/VIAL IV SCH (08:20)
[2022-07-08] MEDS: INSULIN LISPRO 100 UNITS/ML SUBCUT SCH ×3 (08:21→17:50)
[2022-07-08] MEDS: MEGESTROL ACETATE 400 MG/10 ML UDC PO SCH (08:21)
[2022-07-08] MEDS: FLUDROCORTISONE ACETATE 0.1MG TABLET PO SCH (08:21)
[2022-07-08] MEDS: PHENYLEPHRINE 100 MG in DEXT 5% WATER 240 ML IV PRN (09:52)
[2022-07-08] MEDS: PHENOL/SODIUM PHENOLATE 1.4% SRPAY 177ML MM SCH ×2 (12:00)
[2022-07-08] MEDS ORDERED: MORPHINE SULFATE 2 MG/ML CPJ (NOT FOR IM USE) IV PRN (15:15)
[2022-07-08] MEDS ORDERED: LORAZEPAM 2MG/ML CPJ IV PRN (16:30)
[2022-07-08] MEDS: MORPHINE SULFATE 2 MG/ML CPJ (NOT FOR IM USE) IV PRN ×2 (16:36→17:45)
== END 2022-07-08 18:12 | DRG 870 ==
LOC: ER 01:22 → EDBEDREQSVC 02:34 → EDBEDREQ 02:34 → EDBEDREQTM 02:34 → CVICU 05:09 → EDBEDREQTM 05:12 → EDBEDREQ 05:12 → ENRESERV 06:44 → 7EST 06-20 14:18 → MICUSO 06-24 17:56 → CVICU 07-01 13:57
PROVIDERS: ADMIT Internal Medicine; ATTEND Internal Medicine
PROC: 5A1955Z Respiratory Ventilation, Greater than 96 Consecutive Hours (ICD-10-PCS; principal; 2022-06-10)
PROC: 06HY33Z Insertion of Infusion Device into Lower Vein, Percutaneous Approach (ICD-10-PCS; 2022-06-10)
PROC: B54CZZA Ultrasonography of Left Lower Extremity Veins, Guidance (ICD-10-PCS; 2022-06-10)
PROC: 0BH17EZ Insertion of Endotracheal Airway into Trachea, Via Natural or Artificial Opening (ICD-10-PCS; 2022-06-10)
PROC: 5A1D70Z Performance of Urinary Filtration, Intermittent, Less than 6 Hours Per Day (ICD-10-PCS; 2022-06-10)
PROC: 30233K1 Transfusion of Nonautologous Frozen Plasma into Peripheral Vein, Percutaneous Approach (ICD-10-PCS; 2022-06-13)
PROC: 5A1D70Z Performance of Urinary Filtration, Intermittent, Less than 6 Hours Per Day (ICD-10-PCS; 2022-06-13)
PROC: 5A1D70Z Performance of Urinary Filtration, Intermittent, Less than 6 Hours Per Day (ICD-10-PCS; 2022-06-15)
PROC: 5A1D70Z Performance of Urinary Filtration, Intermittent, Less than 6 Hours Per Day (ICD-10-PCS; 2022-06-18)
PROC: 5A1D70Z Performance of Urinary Filtration, Intermittent, Less than 6 Hours Per Day (ICD-10-PCS; 2022-06-20)
PROC: 5A1D70Z Performance of Urinary Filtration, Intermittent, Less than 6 Hours Per Day (ICD-10-PCS; 2022-06-22)
PROC: 30233N1 Transfusion of Nonautologous Red Blood Cells into Peripheral Vein, Percutaneous Approach (ICD-10-PCS; 2022-06-23)
PROC: 0W9G3ZZ Drainage of Peritoneal Cavity, Percutaneous Approach (ICD-10-PCS; 2022-06-24)
PROC: 5A1D70Z Performance of Urinary Filtration, Intermittent, Less than 6 Hours Per Day (ICD-10-PCS; 2022-06-26)
PROC: 5A1D70Z Performance of Urinary Filtration, Intermittent, Less than 6 Hours Per Day (ICD-10-PCS; 2022-06-28)
PROC: 5A1D70Z Performance of Urinary Filtration, Intermittent, Less than 6 Hours Per Day (ICD-10-PCS; 2022-06-30)
PROC: 02HV33Z Insertion of Infusion Device into Superior Vena Cava, Percutaneous Approach (ICD-10-PCS; 2022-07-02)
PROC: B548ZZA Ultrasonography of Superior Vena Cava, Guidance (ICD-10-PCS; 2022-07-02)
PROC: 5A1D70Z Performance of Urinary Filtration, Intermittent, Less than 6 Hours Per Day (ICD-10-PCS; 2022-07-02)
PROC: 5A1D70Z Performance of Urinary Filtration, Intermittent, Less than 6 Hours Per Day (ICD-10-PCS; 2022-07-05)
DX: A41.81 Sepsis due to Enterococcus (principal); J96.01 Acute respiratory failure with hypoxia; J18.9 Pneumonia, unspecified organism; E43 Unspecified severe protein-calorie malnutrition; G92.8 Other toxic encephalopathy; N18.6 End stage renal disease; N17.0 Acute kidney failure with tubular necrosis; I85.11 Secondary esophageal varices with bleeding; I12.0 Hypertensive chronic kidney disease with stage 5 chronic kidney disease or end stage renal disease; D61.818 Other pancytopenia; N39.0 Urinary tract infection, site not specified; R18.8 Other ascites; E87.1 Hypo-osmolality and hyponatremia; E87.4 Mixed disorder of acid-base balance; E72.20 Disorder of urea cycle metabolism, unspecified; K76.6 Portal hypertension; D68.9 Coagulation defect, unspecified; K92.0 Hematemesis; B19.10 Unspecified viral hepatitis B without hepatic coma; E87.20 Acidosis, unspecified; R57.8 Other shock; K74.60 Unspecified cirrhosis of liver; N40.0 Benign prostatic hyperplasia without lower urinary tract symptoms; E87.5 Hyperkalemia; E11.22 Type 2 diabetes mellitus with diabetic chronic kidney disease; E78.5 Hyperlipidemia, unspecified; E83.51 Hypocalcemia; E88.09 Other disorders of plasma-protein metabolism, not elsewhere classified; D69.6 Thrombocytopenia, unspecified; K52.9 Noninfective gastroenteritis and colitis, unspecified; B19.20 Unspecified viral hepatitis C without hepatic coma; K72.90 Hepatic failure, unspecified without coma; B95.2 Enterococcus as the cause of diseases classified elsewhere; K76.82 Hepatic encephalopathy; D63.1 Anemia in chronic kidney disease; D75.9 Disease of blood and blood-forming organs, unspecified; R13.10 Dysphagia, unspecified; R34 Anuria and oliguria; Z66 Do not resuscitate; Z91.199 Patient's noncompliance with other medical treatment and regimen due to unspecified reason; Z99.2 Dependence on renal dialysis; Z87.891 Personal history of nicotine dependence; Z20.822 Contact with and (suspected) exposure to COVID-19; Z68.28 Body mass index [BMI] 28.0-28.9, adult; Z79.4 Long term (current) use of insulin
CPT/HCPCS: 31500; 36415; 36556; 36600; 49083; 70360; 70496; 70498; 70551; 71045; 74176; 76705; 76937; 80048; 80053; 80076; 80202; 80305; 80307; 80320; 80329; 81003; 82040; 82140; 82248; 82270; 82375; 82533; 82805; 82962; 83036; 83605; 83735; 83880; 84100; 84132; 84145; 84450; 84460; 84478; 84484; 85014; 85018; 85025; 85027; 86705; 86706; 86709; 86803; 86850; 86900; 86920; 86927; 87070; 87077; 87186; 87340; 87426; 90935; 92610; 93005; 93306; 94002; 94003; 94660; 97162; 97166; 99291; A6261; C1752; C1769; C9113; C9803; J0290; J0610; J0692; J0713; J0885; J1265; J1815; J2060; J2185; J2270; J2310; J2354; J2370; J2543; J2704; J3010; J3370; J3430; J3480; J3490; J7030; J7042; J7050; J7060; P9016; P9017; P9047; Q9967; A4315; G0480